=== PATIENT | male | born 1940 | race Caucasian/White ===

== ENCOUNTER 2019-03-08 10:30 | Inpatient (IN) | payer MEDICARE ==
[~2019-03-08 10:30] MED LIST: Iopamidol 370 76% 100 ML VIAL ONE
[2019-03-08 11:06] LABS: #Basophils 0.1 thou/uL (0.0-0.2); #Eosinphils 0.1 thou/uL (0.0-0.7); #Lymphocytes 3.7 thou/uL (1.20-3.40); #Neutrophils 8.4 thou/uL (1.40-6.50); %Basophils 0.6 % (0.0-1.0); %Eosinophils 0.8 % (0.0-10.0); %Lymphocytes 27.8 % (21.0-51.0); %Monocytes 7.5 % (0.0-10.0); %Neutrophils 63.4 % (42.0-75.0); Mean Corpuscular HGB CONC 32.9 g/dL (32.0-36.0); Mean Corpuscular Hemoglobin 29.4 pg (27.0-31.0); Mean Corpuscular Volume 89.4 fL (78.0-98.0); Mean Platelet Volume 8.6 fL (7.4-10.4); Platelet Count 186 thou/uL (130-400); RBC Distribution Width 12.4 % (11.5-14.5); White Blood Cell (WBC) Count 13.2 thou/uL (4.8-10.8)
[2019-03-08] MEDS ORDERED: Nitroglycerin 0.4 MG TAB 1 EACH ONE (11:14)
[2019-03-08] MEDS ORDERED: Aspirin 325 MG TAB ONE (11:14)
--- NOTE | 2019-03-08 11:18 | RAD ---
EXAM: Chest one view: HISTORY: Chest pain COMPARISON: 07/08/2016 FINDINGS: Heart size: Within normal limits. Lungs: Clear of acute process. No evidence for confluent pneumonia, pleural effusion, acute edema, or pneumothorax, or other signifi cant acute process. IMPRESSION: No significant acute intrathoracic disease. Atherosclerosis of the aorta. Stable exam.
[2019-03-08 11:27] LABS: ALT (SGPT) 36 U/L (8-55); AST (SGOT) 54 U/L (5-34); Albumin 4.4 g/dL (3.4-4.8); Alkaline Phosphatase 95 U/L (40-110); Anion Gap 11 mmol/L (10-20); BUN (Urea Nitrogen) 12 mg/dL (8.4-25.7); Bilirubin, Total 1.3 mg/dL (0.2-1.2); Calc. Creatinine Clearance 0 mL/min (70-130); Calcium 9.7 mg/dL (7.8-10.44); Carbon Dioxide 27 mmol/L (23-31); Chloride 105 mmol/L (98-107); Estimated GFR-MDRD 66; Globulin 2.5 g/dL (2.4-3.5); Glucose 117 mg/dL (83-110); Protein, Total 6.9 g/dL (5.8-8.1); Sodium 139 mmol/L (136-145)
[2019-03-08 12:00] LABS: CKMB 63.3 ng/mL (0-6.6)
[2019-03-08] MEDS ORDERED: Nitroglycerin 50 MG/250 ML BOT 250 ML ONE (12:14)
[2019-03-08] MEDS ORDERED: Enoxaparin Sodium 80 MG/0.8 ML SYRINGE ONE (12:28)
[2019-03-08] MEDS ORDERED: Morphine 2 MG/ML SYRINGE ONE (13:01)
[2019-03-08] MEDS ORDERED: Pantoprazole 40 MG VIAL ONE (13:05)
[2019-03-08 14:01] LABS: Troponin I 2.518 ng/mL (< 0.028)
[2019-03-08] MEDS ORDERED: Acetaminophen/Codeine 30-300mg Tablet PO PRN (14:43)
[2019-03-08] MEDS ORDERED: Nitroglycerin 0.4 MG TAB (25 Tab Bottle) SL PRN (14:43)
[2019-03-08] MEDS ORDERED: Sodium Chloride 0.9% 200 ML IV PRN (14:43)
[2019-03-08] MEDS ORDERED: Sodium Chloride 0.9% 500 ML IV SCH (14:45)
[2019-03-08] MEDS ORDERED: Heparin 10,000 UNITS/ 10 ML VIAL SLOW IVP SCH (15:00)
[2019-03-08 15:23] LABS: Hemoglobin 14.8 g/dL (14.0-18.0); Platelet Count 166 thou/uL (130-400)
[2019-03-08 16:12] VITALS: BMI 27.3
--- NOTE | 2019-03-08 16:45 | CT ---
EXAM: Brain CT scan Without contrast: HISTORY: Blindness left eye peripheral vision loss COMPARISON: None FINDINGS: Atrophy and chronic white matter ischemic change. No focal mass or midline shift. No intra or extra-axial hemorrhage. The visualized sinuses and mastoids are clear of acute process. IMPRESSION: No mass or bleed or other significant acute intracranial process.
--- NOTE | 2019-03-08 16:56 | CON ---
DATE OF CONSULTATION: HISTORY OF PRESENT ILLNESS: The patient is a 78-year-old gentleman with no known previous cardiac history, who presents with substernal chest discomfort. He was in his usual state of health when a few days ago, he started developing midsternal chest discomfort. This has been intermittent for the past few days. He states the chest discomfort has now become more persistent. PAST MEDICAL HISTORY: 1. BPH. 2. Osteoarthritis. PAST SURGICAL HISTORY: Appendectomy, cholecystectomy, and shoulder surgery. SOCIAL HISTORY: Nonsmoker. FAMILY HISTORY: Strong family history of heart disease. PHYSICAL EXAMINATION: GENERAL: This is a well-developed gentleman, in mild distress. VITAL SIGNS: Blood pressure was 120/70. NECK: Showed no jugular venous distention. LUNGS: Clear to auscultation. HEART: Regular rate and rhythm. Normal S1 and S2. ABDOMEN: Nondistended. EXTREMITIES: Showed no edema. LABORATORY DATA: Sodium 139, potassium 4.0, chloride 105, bicarbonate 27, BUN 12, and creatinine 1.03. CPK-MB was 63 and troponin was 2.1. White blood count 13.2, hemoglobin was 17.0, hematocrit 51.8, and platelets 186. EKG revealed normal sinus rhythm with ST depression suggestive of ischemia. IMPRESSION: Non-Q-wave myocardial infarction. This gentleman presents with a non-Q-wave myocardial infarction. He was placed on IV nitroglycerin and Lovenox. He continues to have chest discomfort. I recommended proceeding to cardiac catheterization. The risks involved procedure including NC, bleeding, stroke, cardiac arrhythmia, and cardiac have been explained to the patient. The risks involving in stent placement have also been explained. The patient understands these risks and wished to proceed. PLAN: Proceed with cardiac catheterization. Critical care note, time 40 minutes. Job ID: [id number] MTDD
--- NOTE | 2019-03-08 17:00 | CON ---
DATE OF CONSULTATION: 03/08/2019 REASON FOR CONSULTATION: Evaluate patient for coronary artery bypass grafting. HISTORY OF PRESENT ILLNESS: Mr. Carrillo is a 78-year-old gentleman, who presented to the emergency department with chest pain. He was given Lovenox, taken to the laborer [facility] and found to have severe three-vessel disease. His culprit is his right coronary artery, which has tandem right main lesions with bypassable PDA and PL branches. On the left side, he has diffusely diseased very small vessels throughout. He may have a bypassable LAD. The OM and diagonal systems are non-bypassable. He has had a balloon pump placed. His peak troponin is 2.5 with CK-MB of 63. I have been asked to see him to discuss coronary artery bypass grafting. PAST MEDICAL HISTORY: 1. Urinary stones. 2. Coronary artery disease. 3. BPH. ALLERGIES: NONE. PAST SURGICAL HISTORY: Renal stone extraction. HOME MEDICATIONS: 1. Flomax 0.4 mg b.i.d. 2. Aspirin 81 mg daily. PHYSICAL EXAMINATION: GENERAL: This is a well-developed, well-nourished man, resting comfortably in bed with a balloon pump placed through his groin sheaths. HEENT: Sclerae are nonicteric. Pupils are equal and round bilaterally. NECK: Supple without bruit. CHEST: Clear bilaterally. CARDIAC: Heart rhythm is regular without murmur. ABDOMEN: Soft and nontender. EXTREMITIES: No edema. LABORATORY DATA: Of note, his potassium is 4.0, creatinine is 1.08. Hemoglobin is 17, platelet count 186,000. IMAGING DATA: Chest x-ray shows no dominant lung mass. ASSESSMENT AND PLAN: ST-elevation myocardial infarction inferiorly. We will need revascularization after he cools off. Job ID: [id number]
--- NOTE | 2019-03-08 18:15 | HP ---
CHIEF COMPLAINT: Chest pain. HISTORY OF PRESENT ILLNESS: The patient is a 78-year-old male with no significant past medical history, who presents to the hospital with complaints of chest pain that has been going on since . The patient stated that he is normally very active. However, since , he has been having some chest tightness. He initially attributed that to reflux, took Tums, Protonix, and also some Pepto-Bismol without any relief. The patient stated that towards the end of the day, his pain improved and Sunday morning, his pain was okay. However, when he walked to the post office, he was very very short of breath. The patient stated that his chest pain intensified towards the end of Sunday. He denies any fevers or chills, any nausea, vomiting, or diarrhea. He stated that his pain was a pressure-like sensation, substernal, did not have any radiation. The patient appeared to be in discomfort on the nitroglycerin drip in the ER. PAST MEDICAL HISTORY: He has a history of GERD and he has a history of BPH. PAST SURGICAL HISTORY: He has had a cholecystectomy, hernia repair, colonoscopy, and right shoulder surgery. His last stress test was in 2017. MEDICATIONS: Currently, he is only on pantoprazole 20 mg daily. ALLERGIES: NO KNOWN DRUG ALLERGIES. REVIEW OF SYSTEMS: All negative except for the ones mentioned above in the HPI. FAMILY HISTORY: Father of an MO at age of 78, and he also had a brother who had a heart attack at the age of 40 and several other heart attacks. SOCIAL HISTORY: He denies any tobacco use or alcohol use or drug use. He is retired and lives with his . PHYSICAL EXAMINATION: VITAL SIGNS: Temperature of 98.8, heart rate of 80, blood pressure of 140/60, he is 98% on room air. GENERAL: He is awake, alert, and oriented x3, does not appear in distress, appears very uncomfortable. CV: S1 and S2 present. No murmurs, rubs, or gallops. LUNGS: Clear to auscultation. No rhonchi or wheezes noted. ABDOMEN: Soft, nontender. Bowel sounds present x2. EXTREMITIES: No edema. Pedal pulses are present x2. NEUROVASCULAR: No focal deficits noted. SKIN: No cuts, lesions, or bruises noted. LABORATORY RESULTS: WBCs of 13.2, hemoglobin 17.0, hematocrit of 51.8, platelets of 186. His chemistry; sodium 139, potassium 4.0, BUN of 62, creatinine 1.17. Troponin is 2.1 went up to 2.5 with a CK of 63. His bilirubin is 1.3. He did have a chest x-ray, which did not show any acute abnormalities and just atherosclerosis of the aorta. ASSESSMENT AND PLAN: The patient is a very pleasant 78-year-old male, who presents to the hospital with complaints of chest pain. 1. Unstable angina. The patient has had significant pain at rest. We will start to trend troponins. The patient is currently on nitroglycerin drip, still having chest pain. I will call Cardiology. The patient will most likely require cardiac cath today. He does have ST depression in his lateral leads and we have his nitroglycerin drip for about 40 minutes without any relief. His blood pressure is currently stable. 2. Gastroesophageal reflux disease. We will continue his home medication. 3. Mildly elevated LFT. Again, we will check a lipid panel in the morning and continue to monitor. 4. Mild leukocytosis is possible reactive. He does not have any fever and I will hold off on any antibiotics for now. The patient is going to be admitted to the ICU. We will start Lovenox and the patient has been received aspirin. We will also put this patient on a statin. Job ID: [id number]
[2019-03-08] MEDS: Sodium Chloride 0.9% 1,000 ML IV SCH (19:10)
[2019-03-08] MEDS: Tamsulosin HCl 0.4 MG CAP PO SCH (20:02)
[2019-03-08] MEDS: Atorvastatin Calcium 40 MG TAB PO SCH (20:02)
[2019-03-08 21:38] LABS: Troponin I 8.025 ng/mL (< 0.028)
[2019-03-08] MEDS: Heparin 10,000 UNITS/ 10 ML VIAL SLOW IVP SCH (23:54)
[2019-03-08] MEDS: Heparin 25,000 units/D5W 500 ML IVPB SCH (23:55)
[2019-03-09] MEDS: Nitroglycerin 50 MG/250 ML BOT 250 ML IVPB SCH ×2 (00:51→18:59)
[2019-03-09] MEDS: Morphine 2 MG/ML SYRINGE SLOW IVP PRN ×3 (03:55→22:52)
[2019-03-09] MEDS: Ondansetron PF 4 MG/2 ML Vial SLOW IVP PRN ×2 (03:55→12:54)
[2019-03-09] MEDS: Sodium Chloride 0.9% 1,000 ML IV SCH ×2 (04:07→19:00)
[2019-03-09 06:41] LABS: #Lymphocytes 3.6 thou/uL (1.20-3.40); #Monocytes 1.9 thou/uL (0.11-0.59); #Neutrophils 10.4 thou/uL (1.40-6.50); %Basophils 0.3 % (0.0-1.0); %Eosinophils 0.1 % (0.0-10.0); %Lymphocytes 22.7 % (21.0-51.0); %Monocytes 11.6 % (0.0-10.0); %Neutrophils 65.3 % (42.0-75.0); Hemoglobin 13.9 g/dL (14.0-18.0); Mean Corpuscular Hemoglobin 30.3 pg (27.0-31.0); Mean Corpuscular Volume 89.2 fL (78.0-98.0); Mean Platelet Volume 8.7 fL (7.4-10.4); Platelet Count 148 thou/uL (130-400); RBC Distribution Width 12.4 % (11.5-14.5); Red Blood Cell (RBC) Count 4.57 mill/uL (4.70-6.10)
[2019-03-09 07:02] LABS: ALT (SGPT) 29 U/L (8-55); AST (SGOT) 64 U/L (5-34); Albumin 3.5 g/dL (3.4-4.8); Alkaline Phosphatase 72 U/L (40-110); Anion Gap 9 mmol/L (10-20); BUN (Urea Nitrogen) 14 mg/dL (8.4-25.7); Calc. Creatinine Clearance 73 mL/min (70-130); Calcium 8.6 mg/dL (7.8-10.44); Carbon Dioxide 23 mmol/L (23-31); Cardiac Risk 3.1 (Less than 4.5); Chloride 109 mmol/L (98-107); Cholesterol 122 mg/dl (< 200 Desired); Estimated GFR-MDRD 73; Glucose 125 mg/dL (83-110); HDL Cholesterol 39 mg/dL (>60 Neg Risk); LDL Cholesterol, Calculated 73 mg/dL; Potassium 3.9 mmol/L (3.5-5.1); Protein, Total 5.5 g/dL (5.8-8.1); Sodium 137 mmol/L (136-145); Triglycerides 49 mg/dL (Less than 150)
[2019-03-09] MEDS ORDERED: CEFAZOLIN 2 GM in Premix Bag 1 BAG IVPB SCH (08:15)
[2019-03-09] MEDS: Tamsulosin HCl 0.4 MG CAP PO SCH (09:26)
[2019-03-09] MEDS: Aspirin 81 mg Enteric Coated Tablet PO SCH (09:26)
--- NOTE | 2019-03-09 09:40 | PDOC.HOSPP ---
- Subjective Encounter Date: 03/09/19 Encounter Time: 09:38 Subjective: Mr. Carrillo was seen today in follow-up of STEMI. He denies chest pain or trouble breathing, dizziness lightheaded ect. - Objective Vital Signs & Weight: Vital Signs (12 hours) Temp Pulse Resp BP BP Pulse Ox 03/09/19 08:00 99.6 F 03/09/19 06:46 96 03/09/19 04:00 98.9 F 03/09/19 00:00 99.5 F 78 14 112/62 112/62 96 Weight Admit Weight 180 lb 1.883 oz Weight 178 lb 2.136 oz Most Recent Monitor Data Heart Rate from ECG 82 NIBP 123/68 NIBP BP-Mean 86 Respiration from ECG 17 SpO2 95 I&O: 03/08/19 03/09/19 03/10/19 06:59 06:59 06:59 Intake Total 2114.9 Output Total 800 150 Balance 1314.9 -150 Result Diagrams: 03/09/19 06:32 03/09/19 06:32 Hospitalist ROS - Medication Medications: Active Medications Generic Name Dose Route Start Last Admin Trade Name Freq PRN Reason Stop Dose Admin Acetaminophen/Codeine Phosphate 1 tab 03/08/19 14:43 03/08/19 17:58 Tylenol #3 PO 1 tab Q4H PRN Administration Mild Pain (1-3) Aspirin 81 mg 03/09/19 09:00 03/09/19 09:26 Ecotrin PO 81 mg DAILY ROSIO Administration Atorvastatin Calcium 80 mg 03/08/19 21:00 03/08/19 20:02 Lipitor PO 80 mg HS ROSIO Administration Heparin Sodium (Porcine) 0 units 03/08/19 23:50 03/08/19 23:54 Heparin 1,000 Units/Ml (10 Ml) SLOW IVP 4,000 unit ASDIR ROSIO Administration Protocol Heparin Sodium/Dextrose 500 mls @ 0 mls/hr 03/08/19 23:50 03/08/19 23:55 Heparin 25,000 Units/D5w 500 Ml IVPB 500 mls INF ROSIO Administration Protocol Per Protocol Sodium Chloride 1,000 mls @ 75 mls/hr 03/08/19 18:45 03/09/19 04:07 Normal Saline 0.9% IV 1,000 mls .[id number] ROSIO Administration Nitroglycerin/Dextrose 250 mls @ 0 mls/hr 03/08/19 18:45 03/09/19 00:51 Nitroglycerin 50 Mg/250 Ml Bot IVPB 250 mls INF ROSIO Administration Protocol As Directed Morphine Sulfate 2 mg 03/08/19 18:33 03/09/19 03:55 Morphine SLOW IVP 2 mg Q2H PRN Administration Moderate to Severe Pain (6-10) Ondansetron HCl 4 mg 03/09/19 01:22 03/09/19 03:55 Zofran SLOW IVP 4 mg Q6H PRN Administration Nausea/Vomiting Pantoprazole Sodium 40 mg 03/08/19 21:00 03/09/19 09:26 Protonix PO 40 mg BID ROSIO Administration Sodium Chloride 10 ml 03/08/19 21:00 03/09/19 09:27 Flush - Normal Saline IVF Not Given Q12HR ROSIO Tamsulosin HCl 0.4 mg 03/08/19 21:00 03/09/19 09:26 Flomax PO 0.4 mg BID ROSIO Administration - Exam Eye: PERRL Heart: RRR, no rubs, normal peripheral pulses (+ S3) Respiratory: CTAB, no wheezes, no rales, no ronchi, normal chest expansion, no tachypnea Gastrointestinal: soft, non-tender, non-distended, normal bowel sounds, no palpable masses, no hepatomegaly Extremities: no cyanosis, no clubbing, no edema Hosp A/P (1) STEMI (ST elevation myocardial infarction) Status: Acute (2) Chronic diastolic heart failure Code(s): I50.32 - CHRONIC DIASTOLIC (CONGESTIVE) HEART FAILURE Status: Chronic (3) GERD (gastroesophageal reflux disease) Code(s): K21.9 - GASTRO-ESOPHAGEAL REFLUX DISEASE WITHOUT ESOPHAGITIS Status: Chronic - Plan * STEMI- patient was found to have 3 vessel CAD * Continue aspirin, Nitrodrip, and lipitor. He also is on balloon pump * Chronic diastolic heart failure- compensated * Plan is for CABG tomorrow
[2019-03-09] MEDS: Heparin 10,000 UNITS/ 10 ML VIAL SLOW IVP SCH (18:49)
[2019-03-09] MEDS: Atorvastatin Calcium 40 MG TAB PO SCH (21:39)
[2019-03-10] MEDS: Heparin 25,000 units/D5W 500 ML IVPB SCH (00:37)
[2019-03-10] MEDS: Morphine 2 MG/ML SYRINGE SLOW IVP PRN (02:21)
[2019-03-10 03:46] LABS: Anion Gap 12 mmol/L (10-20); BUN (Urea Nitrogen) 13 mg/dL (8.4-25.7); Calc. Creatinine Clearance 88 mL/min (70-130); Calcium 8.1 mg/dL (7.8-10.44); Carbon Dioxide 20 mmol/L (23-31); Chloride 107 mmol/L (98-107); Estimated GFR-MDRD Greater than 90; Glucose 113 mg/dL (83-110); Potassium 3.6 mmol/L (3.5-5.1); Sodium 135 mmol/L (136-145)
[2019-03-10 04:11] LABS: #Basophils 0.1 thou/uL (0.0-0.2); #Eosinphils 0.1 thou/uL (0.0-0.7); #Lymphocytes 4.3 thou/uL (1.20-3.40); #Neutrophils 8.8 thou/uL (1.40-6.50); %Basophils 0.5 % (0.0-1.0); %Eosinophils 0.5 % (0.0-10.0); %Lymphocytes 28.2 % (21.0-51.0); %Monocytes 12.9 % (0.0-10.0); %Neutrophils 57.9 % (42.0-75.0); Hemoglobin 12.4 g/dL (14.0-18.0); Mean Corpuscular HGB CONC 34.3 g/dL (32.0-36.0); Mean Corpuscular Hemoglobin 30.7 pg (27.0-31.0); Mean Corpuscular Volume 89.6 fL (78.0-98.0); Mean Platelet Volume 8.7 fL (7.4-10.4); Platelet Count 111 thou/uL (130-400); Platelet Morphology Comment Appears Decreased; RBC Distribution Width 12.3 % (11.5-14.5); Red Blood Cell (RBC) Count 4.04 mill/uL (4.70-6.10); White Blood Cell (WBC) Count 15.1 thou/uL (4.8-10.8)
--- NOTE | 2019-03-10 08:06 | CON ---
DATE OF CONSULTATION: HISTORY OF PRESENT ILLNESS: Reggie Carrillo is a 78-year-old gentleman, who came into the ER yesterday with chest pain. He thought it was reflux. Unfortunately, the pain persisted. His EKG was abnormal. He was taken to the cardiac cath, found to have significant coronary artery disease. He is scheduled for bypass surgery tomorrow. He is a nonsmoker. He drinks minimally. PAST MEDICAL HISTORY: Pertinent for hypertension, arthritis, and BPH. PREVIOUS SURGERIES: Appendix, gallbladder, shoulder. HOME MEDICATIONS: Include 1. Flomax 0.4. 2. Ibuprofen. 3. Protonix. ALLERGIES: NONE. 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 FAMILY HISTORY: Unremarkable. REVIEW OF SYSTEMS: Otherwise 10-point negative. PHYSICAL EXAMINATION: GENERAL: He is in no distress. VITAL SIGNS: Blood pressure 123/68, pulse , respiratory rate 18, and afebrile. CHEST: No wheezing or crackles. CARDIAC: Normal S1 and S2. No gallops. ABDOMEN: Soft. NEUROLOGIC: Awake, alert, and responsive. LABORATORY DATA: X-ray is clear. Troponin is elevated, 8.02. Lytes are normal. White count is slightly elevated at 16,000. IMPRESSION: 1. Coronary artery disease. 2. Chest pain. 3. Status post cardiac cath. PLAN: Pulmonary/Critical Care will follow while in the ICU. He appears to be stable. Consultation note, 70 minutes, 50% direct patient care. Job ID: [id number]
--- NOTE | 2019-03-10 08:18 | PRG ---
DATE OF SERVICE: 03/10/2019 SUBJECTIVE: Reggie Carrillo remains in the ICU. He is scheduled for bypass surgery later on in the day. OBJECTIVE: VITAL SIGNS: Pulse 67, blood pressure 110/70, saturations on 2 L, respirations 18, and afebrile. GENERAL: He denies pain or discomfort. CHEST: No wheezing or crackles. CARDIAC: Normal S1, S2. No gallops. ABDOMEN: No mass. LABORATORY DATA: White count 15,000. Lytes are normal. PTT 76. ASSESSMENT: Coronary artery disease, status post emergency cardiac cath. PLAN: He is scheduled for bypass surgery later on today. Pulmonary will follow while in the ICU. Wean per protocol. Job ID: [id number]
[2019-03-10] MEDS ORDERED: Glycopyrrolate 0.2 MG/ML 5 ML SYRINGE ONE (09:28)
[2019-03-10] MEDS ORDERED: ePHEDrine/0.9% NaCl/PF SYRINGE 50 mg/10 ml ONE (09:28)
[2019-03-10] MEDS ORDERED: Ketorolac Tromethamine 30 MG/ML VIAL ONE (09:28)
[2019-03-10] MEDS ORDERED: Aminocaproic Acid 5 GM/20 ML VIAL ONE (09:28)
[2019-03-10] MEDS ORDERED: Potassium Chloride 60 MEQ/30 ML VIAL ONE (09:28)
[2019-03-10] MEDS ORDERED: Heparin 5,000 UNITS/ML VIAL ONE (09:28)
[2019-03-10] MEDS ORDERED: Heparin 30,000 units/30 ml VIAL ONE (09:28)
[2019-03-10] MEDS ORDERED: Calcium Chloride 1 GM/10 ML Abboject SYRINGE ONE (09:28)
[2019-03-10] MEDS ORDERED: Sodium Bicarb 50 MEQ/50 ML Abboject 8.4% SYRINGE ONE (09:28)
[2019-03-10] MEDS ORDERED: Ondansetron PF 4 MG/2 ML Vial ONE (09:28)
[2019-03-10] MEDS ORDERED: Nitroglycerin 50 MG/250 ML BOT ONE (09:28)
[2019-03-10] MEDS ORDERED: Dexamethasone 20 MG/5 ML VIAL ONE (09:28)
[2019-03-10] MEDS ORDERED: Cardioplegic Soln 1,000 ML BAG ONE (09:28)
[2019-03-10] MEDS ORDERED: Lidocaine 2% PF 5 ML VIAL ONE (09:28)
[2019-03-10] MEDS ORDERED: Vecuronium 10 MG VIAL ONE ×2 (09:28→12:36)
[2019-03-10] MEDS ORDERED: Papaverine 60 MG/2 ML VIAL ONE (09:28)
[2019-03-10] MEDS ORDERED: Magnesium Sulfate 1 GM/2 ML VIAL ONE (09:28)
[2019-03-10] MEDS ORDERED: Lidocaine 1% PF 5 ML VIAL ONE ×2 (09:28)
[2019-03-10] MEDS ORDERED: Thrombin 5000 UNITS/5 ML VIAL ONE (09:28)
[2019-03-10] MEDS: Aspirin 81 mg Enteric Coated Tablet PO SCH (09:38)
--- NOTE | 2019-03-10 09:57 | PDOC.HOSPP ---
- Subjective Encounter Date: 03/10/19 Encounter Time: 09:55 Subjective: Mr. Carrillo was seen today in follow-up of NSTEMI. He does not have any complaints today. He denies chest pain or shortness of breath. - Objective Vital Signs & Weight: Vital Signs (12 hours) Temp Pulse Ox 03/10/19 08:00 99.8 F H 100 03/09/19 23:00 98.6 F Weight Admit Weight 180 lb 1.883 oz Weight 178 lb 12.718 oz Most Recent Monitor Data Heart Rate from ECG 74 NIBP 127/51 NIBP BP-Mean 76 Respiration from ECG 20 SpO2 95 I&O: 03/09/19 03/10/19 03/11/19 06:59 06:59 06:59 Intake Total 2114.9 3511 24 Output Total 800 925 100 Balance 1314.9 2586 -76 Result Diagrams: 03/10/19 03:09 03/10/19 03:09 Hospitalist ROS - Medication Medications: Active Medications Generic Name Dose Route Start Last Admin Trade Name Freq PRN Reason Stop Dose Admin Acetaminophen/Codeine Phosphate 1 tab 03/08/19 14:43 03/08/19 17:58 Tylenol #3 PO 1 tab Q4H PRN Administration Mild Pain (1-3) Aspirin 81 mg 03/09/19 09:00 03/10/19 09:38 Ecotrin PO Not Given DAILY ROSIO Atorvastatin Calcium 80 mg 03/08/19 21:00 03/09/19 21:39 Lipitor PO 80 mg HS ROSIO Administration Sodium Chloride 1,000 mls @ 75 mls/hr 03/08/19 18:45 03/09/19 19:00 Normal Saline 0.9% IV 1,000 mls .[id number] ROSIO Administration Nitroglycerin/Dextrose 250 mls @ 0 mls/hr 03/08/19 18:45 03/09/19 18:59 Nitroglycerin 50 Mg/250 Ml Bot IVPB 250 mls INF ROSIO Administration Protocol As Directed Morphine Sulfate 2 mg 03/08/19 18:33 03/10/19 02:21 Morphine SLOW IVP 2 mg Q2H PRN Administration Moderate to Severe Pain (6-10) Ondansetron HCl 4 mg 03/09/19 01:22 03/09/19 12:54 Zofran SLOW IVP 4 mg Q6H PRN Administration Nausea/Vomiting Pantoprazole Sodium 40 mg 03/08/19 21:00 03/10/19 09:38 Protonix PO Not Given BID ROSIO Sodium Chloride 10 ml 03/08/19 21:00 03/10/19 09:38 Flush - Normal Saline IVF Not Given Q12HR ROSIO - Exam Eye: PERRL, anicteric sclera Heart: RRR, murmur present, II/IV Respiratory: CTAB, no wheezes, no rales, no ronchi, normal chest expansion, no tachypnea, normal percussion Gastrointestinal: soft, non-tender, non-distended, normal bowel sounds, no palpable masses, no hepatomegaly Extremities: 1+ LE edema Hosp A/P (1) NSTEMI (non-ST elevated myocardial infarction) Code(s): I21.4 - NON-ST ELEVATION (NSTEMI) MYOCARDIAL INFARCTION Status: Acute (2) Chronic diastolic heart failure Code(s): I50.32 - CHRONIC DIASTOLIC (CONGESTIVE) HEART FAILURE Status: Chronic (3) GERD (gastroesophageal reflux disease) Code(s): K21.9 - GASTRO-ESOPHAGEAL REFLUX DISEASE WITHOUT ESOPHAGITIS Status: Chronic - Plan * NSTEMI - patient was found to have 3 vessel CAD * Continue aspirin, Nitrodrip, and lipitor. He also is on balloon pump * Patient is clinically stable * Chronic diastolic heart failure- compensated * For CABG today
[2019-03-10] MEDS: Sodium Chloride 0.9% 1,000 ML IV SCH (10:00)
[2019-03-10] MEDS ORDERED: Bupivacaine PF 0.5% 30 ML VIAL ONE (11:47)
[2019-03-10] MEDS ORDERED: Albumin 5% 500 ML ONE (11:47)
[2019-03-10] MEDS ORDERED: Dexamethasone 4 mg/ml Vial ONE (11:47)
[2019-03-10] MEDS ORDERED: Lidocaine 1% w/Epinephrine 1:100K 20 ML VIAL ONE (11:47)
[2019-03-10] MEDS: Nitroglycerin 50 MG/250 ML BOT 250 ML IVPB SCH (12:21)
[2019-03-10] MEDS ORDERED: Midazolam HCl 2 mg/2 ml Vial ONE (12:35)
[2019-03-10] MEDS ORDERED: Fentanyl 100 MCG/2 ML VIAL ONE (12:35)
[2019-03-10] MEDS ORDERED: Midazolam HCl 5 mg/5 ml Vial ONE (12:35)
[2019-03-10] MEDS ORDERED: Dexmedetomidine 200 MCG/2 ML VIAL ONE (12:36)
[2019-03-10] MEDS ORDERED: Heparin 10,000 UNITS/1 ML VIAL 30,000 UNITS in Sodium Chloride 0.9% 1,000 ML FS SCH (13:00)
[2019-03-10] MEDS ORDERED: EPINEPHrine 1 MG/ML AMP ONE (15:24)
[2019-03-10] MEDS ORDERED: Nitroglycerin 50 MG/250 ML BOT 250 ML IVPB PRN (16:15)
[2019-03-10] MEDS ORDERED: Mag-Al 1200 mg/1200 mg/30 ML UDCUP PO PRN (16:15)
[2019-03-10] MEDS ORDERED: Promethazine HCl 25 MG/ML VIAL IM PRN (16:15)
[2019-03-10] MEDS ORDERED: Morphine 2 MG/ML SYRINGE SLOW IVP PRN (16:15)
[2019-03-10] MEDS ORDERED: hydrALAZINE 20 MG/ML VIAL SLOW IVP PRN (16:15)
[2019-03-10] MEDS ORDERED: Potassium Chloride 20 MEQ/100 ML PREMIX BAG IVPB PRN (16:15)
[2019-03-10] MEDS ORDERED: Guaifenesin DM 100-10/5 ML UDCUP PO PRN (16:15)
[2019-03-10] MEDS ORDERED: Phenylephrine 10 MG/NS 250 ML 250 ML IVPB PRN (16:15)
[2019-03-10] MEDS ORDERED: Bisacodyl 10 MG SUPP PR PRN (16:15)
[2019-03-10] MEDS ORDERED: Bisacodyl 5 MG TAB PO PRN (16:15)
[2019-03-10] MEDS ORDERED: Ondansetron PF 4 MG/2 ML Vial IVP PRN (16:15)
[2019-03-10] MEDS ORDERED: Fentanyl 100 MCG/2 ML VIAL SLOW IVP PRN ×2 (16:15)
[2019-03-10] MEDS ORDERED: Hetastarch 6% 500 ML 500 ML IVPB PRN (16:15)
[2019-03-10] MEDS ORDERED: Norepinephrine 8 MG/0.9% NS 250 ML IVPB PRN (16:15)
[2019-03-10] MEDS ORDERED: D5 1/2 NS w/20 mEq KCL 1,000 ML IV SCH (16:15)
[2019-03-10] MEDS ORDERED: Acetaminophen 325 MG TAB PO PRN (16:15)
[2019-03-10] MEDS ORDERED: Magnesium 2 GM/50 ML 2 GM in Premix Bag 1 BAG IVPB SCH (16:30)
[2019-03-10] MEDS ORDERED: Dextrose 5% in Water 1,000 ML IV PRN (16:32)
[2019-03-10] MEDS ORDERED: Dextrose 50% Abboject 50 ML SYRINGE SLOW IVP PRN (16:32)
[2019-03-10] MEDS ORDERED: HUMULIN R 100 UNITS in Sodium Chloride 0.9% 100 ML IVPB SCH (16:43)
[2019-03-10 16:44] LABS: Actual Bicarbonate (HCO3a) 18.7 mEq/L (22-28); Base Excess (BEa) -6.1 mEq/L (-2.0 to +3.0); CO2 Tension 34.8 mmHg (35.0-45.0); Carboxyhemoglobin (COHb) 1.3 gm% (0.0-3.0); O2 Tension (PaO2) 60.2 mmHg (> 70.0); Potassium - ABG Lab 3.93 mmol/L (3.70-5.30); pH, Arterial 7.35 (7.35-7.45)
[2019-03-10 16:45] LABS: Puncture Site LR
--- NOTE | 2019-03-10 16:52 | RAD ---
Chest one view HISTORY: Heart surgery. COMPARISON: 03/08/2019. FINDINGS: Cardiac silhouette is magnified by projection. Shallow inspiration accentuates pulmonary ma rkings. Mediastinum is midline with postoperative changes and radiopaque drain. Left thoracostomy tube projec ts over the lateral aspect of the left hemithorax. Tip of a right subclavian central venous catheter projects over the right atrium. Atelectasis evident at the left posterior medial lung base. No evidence of pneumothorax. IMPRESSION: Expected postoperative changes of the chest as detailed above.
[2019-03-10 17:00] LABS: PTT 32.9 SEC (22.9-36.1)
[2019-03-10 17:05] LABS: Hemoglobin 12.4 g/dL (14.0-18.0); Mean Corpuscular HGB CONC 33.6 g/dL (32.0-36.0); Mean Corpuscular Hemoglobin 30.4 pg (27.0-31.0); Mean Corpuscular Volume 90.3 fL (78.0-98.0); Mean Platelet Volume 8.6 fL (7.4-10.4); Platelet Count 80 thou/uL (130-400); RBC Distribution Width 12.3 % (11.5-14.5); Red Blood Cell (RBC) Count 4.07 mill/uL (4.70-6.10); White Blood Cell (WBC) Count 18.1 thou/uL (4.8-10.8)
[2019-03-10 17:12] LABS: INR-International Normal Ratio 1.5; Prothrombin Time 17.7 SEC (12.0-14.7)
[2019-03-10] MEDS: Insulin Regular 300 UNITS/3 ML VIAL SC PRN ×2 (17:14→20:19)
[2019-03-10 17:16] LABS: Band 18 % (5-11); Lymphocytes 16 % (21-51); MDiff Complete? YES; Metamyelocyte 4 % (0-0); Monocytes 3 % (0-10); Neutrophil 58 % (42-75); Platelet Morphology Comment Appears Decreased; Polychromasia SLIGHT = 2-3 cells (100X) (0-2/hpf)
[2019-03-10 17:17] LABS: Anion Gap 11 mmol/L (10-20); BUN (Urea Nitrogen) 12 mg/dL (8.4-25.7); Calc. Creatinine Clearance 89 mL/min (70-130); Calcium 7.8 mg/dL (7.8-10.44); Carbon Dioxide 21 mmol/L (23-31); Chloride 107 mmol/L (98-107); Estimated GFR-MDRD Greater than 90; Glucose 147 mg/dL (83-110); Potassium 4.1 mmol/L (3.5-5.1); Sodium 135 mmol/L (136-145)
[2019-03-10] MEDS: Ketorolac Tromethamine 30 MG/ML VIAL IVP SCH (17:40)
--- NOTE | 2019-03-10 17:54 | PDOC.CPN ---
- Subjective Date: 03/10/19 Time: 11:45 Interval history: Doing well. Still has a spot on his eye which he cannot see but it is not progressing but also not improving. - Review of Systems General: denies: fever/chills, weight/appetite/sleep changes, night sweats, fatigue Respiratory: denies: cough, congestion, shortness of breath, exercise intolerance Cardiovascular: denies: chest pain, palpitation, edema, paroxysmal nocturnal dyspnea, orthopnea Gastrointestinal: denies: nausea, vomiting, diarrhea, constipation, abd pain, GI bleeding Musculoskeletal: denies: pain, tenderness, stiffness, swelling, arthritis/ arthralgias Neurological: denies: numbness, syncope, seizure, weakness - Objective Allergies/Adverse Reactions: Allergies Allergy/AdvReac Type Severity Reaction Status Date / Time No Known Allergies Allergy Verified 07/08/16 18:04 Visit Medications: Current Medications Acetaminophen (Tylenol) 650 mg PO Q6H PRN PRN Reason: Headache/Fever/Mild Pain (1-3) Al Hydroxide/Mg Hydroxide (Maalox) 30 ml PO Q4H PRN PRN Reason: Indigestion Albumin Human (Albumin 5%) 12.5 gm IVPB Q6H PRN PRN Reason: To Maintain SBP> 90 mmHG Stop: 03/11/19 16:16 Albumin Human (Albumin 5%) 25 gm IVPB Q6H PRN PRN Reason: To Maintain SBP > 90 mmHG Stop: 03/11/19 16:16 Albuterol/Ipratropium (Duoneb) 3 ml NEB Q6H PRN PRN Reason: SHORTNESS OF BREATH Aspirin (Aspirin) 325 mg PO DAILY ROSIO Atorvastatin Calcium (Lipitor) 20 mg PO HS ROSIO Bisacodyl (Dulcolax) 10 mg PO Q12H PRN PRN Reason: Constipation Bisacodyl (Dulcolax) 10 mg [place] Q12H PRN PRN Reason: Constipation Dextrose/Water (Dextrose 50%) 25 gm SLOW IVP PRN PRN PRN Reason: PER HYPOGLYCEMIC PROTOCOL Famotidine (Pepcid) 20 mg SLOW IVP Q12HR ROSIO Fentanyl (Sublimaze) 25 mcg SLOW IVP Q2H PRN PRN Reason: Moderate Pain (4-6) Stop: 03/12/19 16:10 Fentanyl (Sublimaze) 50 mcg SLOW IVP Q2H PRN PRN Reason: Severe Pain (7-10) Stop: 03/12/19 16:10 Last Admin: 03/10/19 17:45 Dose: 50 mcg Glucagon (Glucagon) 1 mg SC PRN PRN PRN Reason: PER HYPOGLYCEMIC PROTOCOL Guaifenesin/Dextromethorphan (Robitussin Dm) 15 ml PO Q4H PRN PRN Reason: Cough Hydralazine HCl (Apresoline) 10 mg SLOW IVP Q6H PRN PRN Reason: To Maintain SBP< 140mmHG Cefazolin Sodium/Dextrose 2 gm (/ Device) 50 mls @ 100 mls/hr IVPB Q8HR [facility] Stop: 03/11/19 14:29 Potassium Chloride/Dextrose/Sod Cl (D5 1/2 Ns W/20 Meq Kcl) 1,000 mls @ 40 mls/ hr IV .Q24H [facility] Last Admin: 03/10/19 17:08 Dose: 1,000 mls Hetastarch/Sodium Chloride (Hespan) 500 mls @ 0 mls/hr IVPB PRN PRN PRN Reason: To Maintain SBP > 90mmHg Stop: 03/11/19 16:10 Norepinephrine Bitartrate (Levophed) 250 mls @ 0 mls/hr IVPB PRN PRN; Protocol PRN Reason: To maintain SBP > 90 mmHG Magnesium Sulfate 2 gm/ Device 50 mls @ 50 mls/hr IVPB NOW [facility] Stop: 03/10/19 18:30 Last Admin: 03/10/19 17:20 Dose: 50 mls Magnesium Sulfate 2 gm/ Device 50 mls @ 50 mls/[facility] [place]: 03/12/19 09:59 Nitroglycerin/Dextrose (Nitroglycerin 50 Mg/250 Ml Bot) 250 mls @ 0 mls/hr IVPB PRN PRN; Protocol PRN Reason: To Maintain SBP< 140mmHG Phenylephrine HCl (Ancelmo-Synephrine) 250 mls @ 0 mls/hr IVPB PRN PRN; Protocol PRN Reason: To maintain SBP > 90 mmHG Dextrose/Water (D5w) 1,000 mls @ 0 mls/hr IV INF PRN PRN Reason: PRN HYPOGLYCEMIC PROTOCOL Insulin Human Regular 100 (units/ Sodium Chloride) 101 mls @ 0 mls/hr IVPB INF [facility]; Protocol Insulin Human Regular (Humulin R) 0 units SC Q4H PRN; Protocol PRN Reason: POST OP SLIDING SCALE Last Admin: 03/10/19 17:14 Dose: 3 unit Ketorolac Tromethamine (Toradol) 30 mg IVP Q6HR [facility] Stop: 03/13/19 18:01 Last Admin: 03/10/19 17:40 Dose: 30 mg Morphine Sulfate (Morphine) 2 mg SLOW IVP Q15MIN PRN PRN Reason: Severe Pain (7-10) Ondansetron HCl (Zofran) 4 mg IVP Q6H PRN PRN Reason: Nausea/Vomiting Potassium Chloride (Kcl) 20 meq IVPB PRN PRN PRN Reason: K level </= 4.0 Promethazine HCl (Phenergan) 6.25 mg IM Q4H PRN PRN Reason: Nausea/Vomiting Sodium Chloride (Flush - Normal Saline) 10 ml IVF Q12HR [facility] Vital Signs & Weight: Vital Signs Temp Pulse Ox 03/10/19 16:56 93 L 03/10/19 12:00 99.1 F 03/10/19 08:00 99.8 F H 100 Admit Weight 180 lb 1.883 oz Weight 178 lb 12.718 oz - Physical Exam General: alert & oriented x3 HEENT: mucus membranes moist Neck: supple neck Cardiac: regular rate and rhythm Lungs: clear to auscultation Neuro: grossly intact Abdomen: active bowel sounds Extremities: no edema Skin: clear Musculoskeletal: no pain - Labs Result Diagrams: 03/10/19 16:45 03/10/19 16:45 Troponin/CKMB CK-MB (CK-2) 63.3 ng/mL (0-6.6) H* 03/08/19 10:51 Troponin I 8.025 ng/mL (< 0.028) H* 03/08/19 20:58 - Telemetry Sinus rhythms and dysrhythmias: sinus rhythm - Assessment/Plan Assessment/Plan: 1. NSTEMI 2. Severe multivessel AD. PLAn: - Continue IABP until surgery. - CABG today.
[2019-03-10] MEDS: CEFAZOLIN 2 GM in Premix Bag 1 BAG IVPB SCH (20:20)
[2019-03-10] MEDS ORDERED: Famotidine/PF 20 mg/2ml Vial SLOW IVP SCH (21:00)
[2019-03-10] MEDS ORDERED: Atorvastatin Calcium 20 MG TAB PO SCH (21:00)
[2019-03-10 22:17] LABS: Hemoglobin 12.8 g/dL (14.0-18.0)
[2019-03-10 22:46] LABS: Potassium 4.2 mmol/L (3.5-5.1)
--- NOTE | 2019-03-10 23:22 | OP ---
DATE OF PROCEDURE: 03/10/2019 PREOPERATIVE DIAGNOSES: 1. Coronary artery disease/status post acute myocardial infarction with depressed left ventricular ejection fraction and intra-aortic balloon support. 2. Hypertension. 3. Dyslipidemia. POSTOPERATIVE DIAGNOSES: 1. Coronary artery disease/status post acute myocardial infarction with depressed left ventricular ejection fraction and intra-aortic balloon support. 2. Hypertension. 3. Dyslipidemia. PROCEDURES PERFORMED: 1. Coronary artery bypass grafting x3. 2. Left internal mammary artery 1.25 mm mid LAD, good conduit and diffusely diseased target. 3. Reverse saphenous vein to 2.0 mm PDA in a [id number] fashion and 2.[address] branch in an end-to-side fashion with a sequential vein graft. There was good conduit and targets. CARPET LAYER HELPER: Devyn Carpenter MD ANESTHESIA: General endotracheal, Zoey Ramos MD. PUMP TIME: 43 minutes. CROSS-CLAMP TIME: 32 minutes. LOW CORE TEMPERATURE: 34 degrees Celsius. PROFESSIONAL NURSE: Yanna Snyder. DRAINS: 24-[place] chest tubes x2. DRIPS: Nitroglycerin. TRANSFUSIONS: None. DESCRIPTION OF PROCEDURE: After consent was obtained, the patient was brought to the operating room, placed in supine position on operating table. Appropriate central line and monitors were placed and general endotracheal anesthesia was induced. Chest and legs were prepped and draped in usual sterile fashion. Greater saphenous vein was harvested from the left lower extremity utilizing an endoscopic technique. Wound was irrigated and closed in layers. Median sternotomy was performed. Left internal mammary artery was harvested as a pedicle graft. The patient was systemically heparinized. Distal pedicle was divided and infused with papaverine. Thymic fat and pericardium were divided with electrocautery. Pericardial stay sutures were placed. Aortic and atrial cannulation was performed. After adequate heparinization, retrograde prime was performed. The patient was placed on cardiopulmonary bypass. Distal targets were marked. Aortic cross-clamp was applied and antegrade sanguineous cardioplegic arrest was obtained. 1 L of antegrade cold [place] cardioplegia was given. Topical cold solution was used. Reverse saphenous vein was anastomosed in a [id number]-[id number] fashion with PDA in end-to-side fashion with PL branch. Anastomoses were tested and were hemostatic. The mammary artery was brought through a window in the pericardium and anastomosed to LAD in an end-to-side fashion with running 7-0 Prolene suture. Anastomosis was tested on releasing and the mammary clamped. Good hooding anastomosis and good distal flow. Pedicle was secured with an interrupted 6-0 Prolene suture. The cross-clamp was removed. A partial occluding clamp placed. Saphenous vein was anastomosed to the aortic root at the punch site with running 6-0 Prolene suture. Partial occluding clamp was removed and graft was deaired. Anastomoses were inspected for hemostasis, which was good. The patient was warmed and weaned from cardiopulmonary bypass. After resumption of sinus rhythm, good hemodynamics, temperature greater than 36.5, bypass was discontinued. Transfusion was given. 24-[place] chest tubes were placed in mediastinum and secured with silk suture. Vancomycin paste was placed on the sternal edges. Decannulation was performed and pursestring suture secured. Hemostasis was ensured within the mediastinum. After adequate hemostasis had been obtained, the sternum was closed with #7 wire. Sternum was treated with platelet rich plasma and wires were then twisted and buried. Peristernal block was performed with bupivacaine. The wounds were then copiously irrigated, treated with platelet poor plasma and closed in multiple layers. Dermabond was applied to skin. Needle, sponge, and instrument counts were all reported as correct at the end of the procedure. Job ID: [id number]
[2019-03-11] MEDS: Ketorolac Tromethamine 30 MG/ML VIAL IVP SCH ×4 (00:15→17:50)
[2019-03-11] MEDS: Insulin Regular 300 UNITS/3 ML VIAL SC PRN (00:20)
[2019-03-11 04:18] LABS: #Lymphocytes 1.2 thou/uL (1.20-3.40); #Monocytes 1.2 thou/uL (0.11-0.59); #Neutrophils 12.2 thou/uL (1.40-6.50); %Lymphocytes 8.2 % (21.0-51.0); %Neutrophils 83.8 % (42.0-75.0); Hemoglobin 12.8 g/dL (14.0-18.0); Mean Corpuscular HGB CONC 33.7 g/dL (32.0-36.0); Mean Corpuscular Hemoglobin 30.2 pg (27.0-31.0); Mean Corpuscular Volume 89.6 fL (78.0-98.0); Mean Platelet Volume 9.6 fL (7.4-10.4); Platelet Count 78 thou/uL (130-400); RBC Distribution Width 12.3 % (11.5-14.5); Red Blood Cell (RBC) Count 4.24 mill/uL (4.70-6.10); White Blood Cell (WBC) Count 14.5 thou/uL (4.8-10.8)
[2019-03-11 04:36] LABS: Anion Gap 10 mmol/L (10-20); BUN (Urea Nitrogen) 14 mg/dL (8.4-25.7); Calc. Creatinine Clearance 81 mL/min (70-130); Carbon Dioxide 22 mmol/L (23-31); Chloride 109 mmol/L (98-107); Estimated GFR-MDRD 83; Glucose 122 mg/dL (83-110); Sodium 137 mmol/L (136-145)
[2019-03-11] MEDS: CEFAZOLIN 2 GM in Premix Bag 1 BAG IVPB SCH ×2 (06:26→13:32)
--- NOTE | 2019-03-11 08:11 | RAD ---
Portable frontal chest radiograph: 03/11/2019 COMPARISON: 03/10/2019 HISTORY: Evaluate chest following open heart surgery FINDINGS: Midline sternotomy wires are present. Right vascular catheter present, distal tip overlying the proximal right atrium. Hazy increased density noted in the medial right base/right infrahilar region. Postsurgical drainage catheter overlies midline mediastinum and mid left lung zone. Linear ra diodensity overlies the proximal aspect of the left mainstem bronchus, etiology uncertain. This may be on the basis of a mediastinal clip. IMPRESSION: Postoperative changes as described above.
[2019-03-11] MEDS: Magnesium 2 GM/50 ML 2 GM in Premix Bag 1 BAG IVPB SCH (08:30)
[2019-03-11] MEDS: Aspirin 325 MG TAB PO SCH (08:31)
--- NOTE | 2019-03-11 08:40 | PRG ---
DATE OF SERVICE: 03/11/2019 SUBJECTIVE: Status post CABG, extubated postop. Per protocol, he is doing well, no pain, no shortness of breath. X-ray looks clear. No effusion. No infiltrates. OBJECTIVE: VITAL SIGNS: Blood pressure 112/59, pulse 73, temperature 98, saturations 100%. CHEST: Decreased breath sounds. No wheezing. CARDIAC: Normal S1 and S2. No gallops. ABDOMEN: No masses. LABORATORY DATA: Unremarkable. ASSESSMENT: Status post coronary artery bypass grafting, stable. PLAN: Pulmonary estevez, we will follow while in the ICU. Continue aggressive PT. Job ID: [id number]
--- NOTE | 2019-03-11 09:31 | PDOC.HOSPP ---
- Subjective Encounter Date: 03/11/19 Encounter Time: 09:29 Subjective: Mr. Carrillo was seen today in follow-up of CABG. He does not have any new complaints. He denies chest pain or dyspnea. - Objective Vital Signs & Weight: Weight Admit Weight 180 lb 1.883 oz Weight 178 lb 12.718 oz Most Recent Monitor Data Heart Rate from ECG 72 NIBP 105/62 NIBP BP-Mean 76 Respiration from ECG 19 SpO2 100 I&O: 03/10/19 03/11/19 03/12/19 06:59 06:59 06:59 Intake Total 3511 1867.2 30 Output Total 925 1938 125 Balance 2586 -70.8 -95 Result Diagrams: 03/11/19 04:10 03/11/19 04:10 Additional Labs: Accuchecks 03/11/19 03/11/19 03/10/19 04:06 00:23 20:15 POC Glucose 119 H 147 H 148 H 03/10/19 03/10/19 03/10/19 16:40 16:08 15:07 POC Glucose 144 H 130 H 127 H 03/10/19 14:03 POC Glucose 121 H Hospitalist ROS - Medication Medications: Active Medications Generic Name Dose Route Start Last Admin Trade Name Freq PRN Reason Stop Dose Admin Aspirin 325 mg 03/11/19 09:00 03/11/19 08:31 Aspirin PO 325 mg DAILY ROSIO Administration Fentanyl 50 mcg 03/10/19 16:15 03/10/19 17:45 Sublimaze SLOW IVP 03/12/19 16:10 50 mcg Q2H PRN Administration Severe Pain (7-10) Cefazolin Sodium/Dextrose 2 gm 50 mls @ 100 mls/hr 03/10/19 22:00 03/11/19 06 :26 / Device IVPB 03/11/19 14:29 50 mls Q8HR ROSIO Administration Magnesium Sulfate 2 gm/ Device 50 mls @ 50 mls/hr 03/11/19 09:00 03/11/19 08: 30 IVPB 03/12/19 09:59 50 mls QAM ROSIO Administration Ketorolac Tromethamine 30 mg 03/10/19 18:00 03/11/19 06:23 Toradol IVP 03/13/19 18:01 30 mg Q6HR ROSIO Administration Ondansetron HCl 4 mg 03/10/19 16:15 03/10/19 20:17 Zofran IVP 4 mg Q6H PRN Administration Nausea/Vomiting Pantoprazole Sodium 40 mg 03/11/19 09:00 03/11/19 08:30 Protonix PO 40 mg BID ROSIO Administration Sodium Chloride 10 ml 03/10/19 21:00 03/11/19 08:30 Flush - Normal Saline IVF 10 ml Q12HR ROSIO Administration - Exam Eye: PERRL Heart: RRR, no gallops (+ mild rub), II/IV Respiratory: CTAB, no wheezes, no rales, no ronchi, normal chest expansion Gastrointestinal: soft, non-tender, non-distended, normal bowel sounds, no palpable masses, no hepatomegaly Extremities: 1+ LE edema Hosp A/P (1) NSTEMI (non-ST elevated myocardial infarction) Code(s): I21.4 - NON-ST ELEVATION (NSTEMI) MYOCARDIAL INFARCTION Status: Acute (2) Chronic diastolic heart failure Code(s): I50.32 - CHRONIC DIASTOLIC (CONGESTIVE) HEART FAILURE Status: Chronic (3) GERD (gastroesophageal reflux disease) Code(s): K21.9 - GASTRO-ESOPHAGEAL REFLUX DISEASE WITHOUT ESOPHAGITIS Status: Chronic - Plan * NSTEMI - patient was found to have 3 vessel CAD- he is s/p CABG * He is hemodynamically stable * Chronic diastolic heart failure- compensated * Blood glucose is stable
--- NOTE | 2019-03-11 14:38 | OP ---
DATE OF PROCEDURE: 03/11/2019 PREOPERATIVE DIAGNOSIS: Need for intra-aortic balloon pump removal. POSTOPERATIVE DIAGNOSIS: Need for intra-aortic balloon pump removal. PROCEDURE PERFORMED: Removal of percutaneously placed intra-aortic balloon pump. ANESTHESIA: None. DESCRIPTION OF PROCEDURE: The right groin was exposed and sutures cut for the balloon pump. Balloon pump was placed on standby and disconnected from arterial waveform monitoring. The balloon pump inflation line was disconnected. Manual pressure was held while the balloon pump was removed. Ante and retrograde bleeding were then allowed. Manual pressure was held for 10 minutes followed by FemStop pressure for hemostasis. The patient tolerated the procedure well. Job ID: [id number] MTDD
--- NOTE | 2019-03-11 16:34 | PDOC.CPN ---
- Subjective Date: 03/11/19 Time: 16:31 Interval history: He is doing very well. He had Surgery yesterday, he is sitting on the chair with minimal complaints. - Review of Systems General: denies: fever/chills, weight/appetite/sleep changes, night sweats, fatigue Respiratory: reports: cough. denies: congestion, shortness of breath, exercise intolerance Cardiovascular: denies: chest pain, palpitation, edema, paroxysmal nocturnal dyspnea, orthopnea Gastrointestinal: denies: nausea, vomiting, diarrhea, constipation, abd pain, GI bleeding Musculoskeletal: reports: pain. denies: tenderness, stiffness, swelling, arthritis/arthralgias Neurological: denies: numbness, syncope, seizure, weakness - Objective Allergies/Adverse Reactions: Allergies Allergy/AdvReac Type Severity Reaction Status Date / Time No Known Allergies Allergy Verified 07/08/16 18:04 Visit Medications: Current Medications Acetaminophen (Tylenol) 650 mg PO Q6H PRN PRN Reason: Headache/Fever/Mild Pain (1-3) Al Hydroxide/Mg Hydroxide (Maalox) 30 ml PO Q4H PRN PRN Reason: Indigestion Albuterol/Ipratropium (Duoneb) 3 ml NEB Q6H PRN PRN Reason: SHORTNESS OF BREATH Aspirin (Aspirin) 325 mg PO DAILY [facility] Last Admin: 03/11/19 08:31 Dose: 325 mg Atorvastatin Calcium (Lipitor) 80 mg PO HS ROSIO Bisacodyl (Dulcolax) 10 mg PO Q12H PRN PRN Reason: Constipation Bisacodyl (Dulcolax) 10 mg VT Q12H PRN PRN Reason: Constipation Fentanyl (Sublimaze) 25 mcg SLOW IVP Q2H PRN PRN Reason: Moderate Pain (4-6) Stop: 03/12/19 16:10 Fentanyl (Sublimaze) 50 mcg SLOW IVP Q2H PRN PRN Reason: Severe Pain (7-10) Stop: 03/12/19 16:10 Last Admin: 03/10/19 17:45 Dose: 50 mcg Guaifenesin/Dextromethorphan (Robitussin Dm) 15 ml PO Q4H PRN PRN Reason: Cough Hydralazine HCl (Apresoline) 10 mg SLOW IVP Q6H PRN PRN Reason: To Maintain SBP< 140mmHG Magnesium Sulfate 2 gm/ Device 50 mls @ 50 mls/hr IVPB QAM [facility] Stop: 03/12/19 09:59 Last Admin: 03/11/19 08:30 Dose: 50 mls Ketorolac Tromethamine (Toradol) 30 mg IVP Q6HR [facility] Stop: 03/13/19 18:01 Last Admin: 03/11/19 11:37 Dose: 30 mg Ondansetron HCl (Zofran) 4 mg IVP Q6H PRN PRN Reason: Nausea/Vomiting Last Admin: 03/10/19 20:17 Dose: 4 mg Pantoprazole Sodium (Protonix) 40 mg PO BID [facility] Last Admin: 03/11/19 08:30 Dose: 40 mg Potassium Chloride (Kcl) 20 meq IVPB PRN PRN PRN Reason: K level </= 4.0 Promethazine HCl (Phenergan) 6.25 mg IM Q4H PRN PRN Reason: Nausea/Vomiting Sodium Chloride (Flush - Normal Saline) 10 ml IVF Q12HR [facility] Last Admin: 03/11/19 08:30 Dose: 10 ml Vital Signs & Weight: Vital Signs Pulse Ox 03/11/19 08:00 100 Admit Weight 180 lb 1.883 oz Weight 178 lb 12.718 oz - Physical Exam General: alert & oriented x3 HEENT: mucus membranes moist Neck: supple neck Cardiac: regular rate and rhythm, no murmur Lungs: normal breath sounds Neuro: grossly intact Abdomen: active bowel sounds Extremities: 1+ LE edema Skin: clear Musculoskeletal: no pain - Labs Result Diagrams: 03/11/19 04:10 03/11/19 04:10 Troponin/CKMB CK-MB (CK-2) 63.3 ng/mL (0-6.6) H* 03/08/19 10:51 Troponin I 8.025 ng/mL (< 0.028) H* 03/08/19 20:58 - Telemetry Sinus rhythms and dysrhythmias: sinus rhythm - Assessment/Plan Assessment/Plan: 1. NSTEMI 2. Severe multivessel AD. 3. S/P CABG 4. Post [facility] stroke PLAN: - Visual field defect unchanged on left eye. He states at times it improves and at times it gets worse. Will have ophthalmology evaluate.
[2019-03-11] MEDS: Atorvastatin Calcium 20 MG TAB PO SCH (20:39)
[2019-03-12] MEDS: Ketorolac Tromethamine 30 MG/ML VIAL IVP SCH ×4 (00:05→18:03)
[2019-03-12 04:05] LABS: #Eosinphils 0.1 thou/uL (0.0-0.7); #Monocytes 1.7 thou/uL (0.11-0.59); #Neutrophils 11.2 thou/uL (1.40-6.50); %Basophils 0.2 % (0.0-1.0); %Eosinophils 0.7 % (0.0-10.0); %Lymphocytes 18.6 % (21.0-51.0); %Monocytes 10.5 % (0.0-10.0); %Neutrophils 70.1 % (42.0-75.0); Hemoglobin 12.2 g/dL (14.0-18.0); Mean Corpuscular Hemoglobin 30.7 pg (27.0-31.0); Mean Corpuscular Volume 90.2 fL (78.0-98.0); Mean Platelet Volume 9.8 fL (7.4-10.4); Platelet Count 120 thou/uL (130-400); RBC Distribution Width 12.5 % (11.5-14.5); Red Blood Cell (RBC) Count 3.99 mill/uL (4.70-6.10); White Blood Cell (WBC) Count 15.9 thou/uL (4.8-10.8)
[2019-03-12 04:20] LABS: Anion Gap 11 mmol/L (10-20); BUN (Urea Nitrogen) 19 mg/dL (8.4-25.7); Calc. Creatinine Clearance 89 mL/min (70-130); Calcium 7.7 mg/dL (7.8-10.44); Carbon Dioxide 22 mmol/L (23-31); Chloride 109 mmol/L (98-107); Estimated GFR-MDRD Greater than 90; Glucose 112 mg/dL (83-110); Potassium 3.7 mmol/L (3.5-5.1); Sodium 138 mmol/L (136-145)
--- NOTE | 2019-03-12 08:14 | RAD ---
XR Chest 1 View Portable History: Post open heart surgery Comparison: Radiograph prior day Findings: Central venous catheter tip sits at the inferior SVC. Heart size is enlarged. Trace effusio ns. Mild scattered atelectasis. No displacement of the multiple midline sternotomy wires. Impression: Expected postoperative findings without complication.
[2019-03-12] MEDS: Aspirin 325 MG TAB PO SCH (08:22)
[2019-03-12] MEDS: Magnesium 2 GM/50 ML 2 GM in Premix Bag 1 BAG IVPB SCH (08:37)
--- NOTE | 2019-03-12 08:50 | PRG ---
DATE OF SERVICE: 03/12/2019 SUBJECTIVE: This morning, he is awake, alert, and responsive. He still has some visual problems in the left eye. Inspector General saw him yesterday, unclear what the issue is, possibly this may be a central artery occlusion temporary hopefully. OBJECTIVE: VITAL SIGNS: Blood pressure 124/64, pulse 74, respiratory rate 18, sats 96% on room air, and afebrile. CHEST: No wheezing or crackles. CARDIAC: Normal S1, S2. No gallops. ABDOMEN: No masses. LABORATORY DATA: Unremarkable. X-ray shows nonspecific bibasilar atelectatic changes. ASSESSMENT: Status post coronary artery bypass grafting. Atelectasis. Otherwise, I agree with transfer to rehab. PT. Supportive care. Eventually, outpatient workup for his visual problems. Job ID: [id number]
--- NOTE | 2019-03-12 09:42 | PDOC.HOSPP ---
- Subjective Encounter Date: 03/12/19 Encounter Time: 09:40 Subjective: Mr. Carrillo was seen today in follow-up of CAD post CABG. He does not have any complaints this morning. - Objective Vital Signs & Weight: Vital Signs (12 hours) Temp 03/12/19 04:00 99.2 F 03/12/19 00:00 99.3 F Weight Admit Weight 180 lb 1.883 oz Weight 167 lb 12.348 oz Most Recent Monitor Data Heart Rate from ECG 70 NIBP 124/65 NIBP BP-Mean 84 Respiration from ECG 17 SpO2 100 I&O: 03/11/19 03/12/19 03/13/19 06:59 06:59 06:59 Intake Total 1867.2 1476 Output Total 1938 1195 0 Balance -70.8 281 0 Result Diagrams: 03/12/19 03:25 03/12/19 03:25 Hospitalist ROS - Medication Medications: Active Medications Generic Name Dose Route Start Last Admin Trade Name Freq PRN Reason Stop Dose Admin Aspirin 325 mg 03/11/19 09:00 03/12/19 08:22 Aspirin PO 325 mg DAILY ROSIO Administration Atorvastatin Calcium 80 mg 03/11/19 08:12 03/11/19 20:39 Lipitor PO 80 mg HS ROSIO Administration Bisacodyl 10 mg 03/10/19 16:15 03/11/19 20:39 Dulcolax PO 10 mg Q12H PRN Administration Constipation Fentanyl 50 mcg 03/10/19 16:15 03/10/19 17:45 Sublimaze SLOW IVP 03/12/19 16:10 50 mcg Q2H PRN Administration Severe Pain (7-10) Magnesium Sulfate 2 gm/ Device 50 mls @ 50 mls/hr 03/11/19 09:00 03/12/19 08: 37 IVPB 03/12/19 09:59 50 mls QAM ROSIO Administration Ketorolac Tromethamine 30 mg 03/10/19 18:00 03/12/19 05:00 Toradol IVP 03/13/19 18:01 30 mg Q6HR ROSIO Administration Ondansetron HCl 4 mg 03/10/19 16:15 03/10/19 20:17 Zofran IVP 4 mg Q6H PRN Administration Nausea/Vomiting Pantoprazole Sodium 40 mg 03/11/19 09:00 03/12/19 08:22 Protonix PO 40 mg BID ROSIO Administration Potassium Chloride 20 meq 03/10/19 16:15 03/12/19 04:55 Kcl IVPB 20 meq PRN PRN Administration K level </= 4.0 Sodium Chloride 10 ml 03/10/19 21:00 03/12/19 08:22 Flush - Normal Saline IVF 10 ml Q12HR ROSIO Administration - Exam Eye: PERRL Heart: RRR, no murmur, no gallops, no rubs, normal peripheral pulses Respiratory: CTAB, no wheezes, no rales, no ronchi, normal chest expansion Gastrointestinal: soft, non-tender, non-distended, normal bowel sounds Extremities: no cyanosis, 1+ LE edema Hosp A/P (1) NSTEMI (non-ST elevated myocardial infarction) Code(s): I21.4 - NON-ST ELEVATION (NSTEMI) MYOCARDIAL INFARCTION Status: Acute (2) Chronic diastolic heart failure Code(s): I50.32 - CHRONIC DIASTOLIC (CONGESTIVE) HEART FAILURE Status: Chronic (3) GERD (gastroesophageal reflux disease) Code(s): K21.9 - GASTRO-ESOPHAGEAL REFLUX DISEASE WITHOUT ESOPHAGITIS Status: Chronic - Plan * NSTEMI - patient was found to have 3 vessel CAD- he is s/p CABG * He is hemodynamically stable * blood pressure is stable * Blood glucose is stable * He is being transferred to [facility] * Continue Cardiac Rehab
--- NOTE | 2019-03-12 16:47 | PDOC.CPN ---
- Subjective Date: 03/12/19 Time: 14:10 Interval history: He is doing well. He had a large BM yesterday after a laxitive was given. - Review of Systems General: denies: fever/chills, weight/appetite/sleep changes, night sweats, fatigue Respiratory: denies: cough, congestion, shortness of breath, exercise intolerance Cardiovascular: denies: chest pain, palpitation, edema, paroxysmal nocturnal dyspnea, orthopnea Gastrointestinal: denies: nausea, vomiting, diarrhea, constipation, abd pain, GI bleeding Musculoskeletal: denies: pain, tenderness, stiffness, swelling, arthritis/ arthralgias Neurological: denies: numbness, syncope, seizure, weakness - Objective Allergies/Adverse Reactions: Allergies Allergy/AdvReac Type Severity Reaction Status Date / Time No Known Allergies Allergy Verified 07/08/16 18:04 Visit Medications: Current Medications Acetaminophen (Tylenol) 650 mg PO Q6H PRN PRN Reason: Headache/Fever/Mild Pain (1-3) Al Hydroxide/Mg Hydroxide (Maalox) 30 ml PO Q4H PRN PRN Reason: Indigestion Albuterol/Ipratropium (Duoneb) 3 ml NEB Q6H PRN PRN Reason: SHORTNESS OF BREATH Aspirin (Aspirin) 325 mg PO DAILY [facility] Last Admin: 03/12/19 08:22 Dose: 325 mg Atorvastatin Calcium (Lipitor) 80 mg PO HS [facility] Last Admin: 03/11/19 20:39 Dose: 80 mg Bisacodyl (Dulcolax) 10 mg PO Q12H PRN PRN Reason: Constipation Last Admin: 03/11/19 20:39 Dose: 10 mg Bisacodyl (Dulcolax) 10 mg [place] Q12H PRN PRN Reason: Constipation Guaifenesin/Dextromethorphan (Robitussin Dm) 15 ml PO Q4H PRN PRN Reason: Cough Hydralazine HCl (Apresoline) 10 mg SLOW IVP Q6H PRN PRN Reason: To Maintain SBP< 140mmHG Ketorolac Tromethamine (Toradol) 30 mg IVP Q6HR [facility] Stop: 03/13/19 18:01 Last Admin: 03/12/19 11:32 Dose: 30 mg Ondansetron HCl (Zofran) 4 mg IVP Q6H PRN PRN Reason: Nausea/Vomiting Last Admin: 03/10/19 20:17 Dose: 4 mg Pantoprazole Sodium (Protonix) 40 mg PO BID [facility] Last Admin: 03/12/19 08:22 Dose: 40 mg Potassium Chloride (Kcl) 20 meq IVPB PRN PRN PRN Reason: K level </= 4.0 Last Admin: 03/12/19 04:55 Dose: 20 meq Promethazine HCl (Phenergan) 6.25 mg IM Q4H PRN PRN Reason: Nausea/Vomiting Sodium Chloride (Flush - Normal Saline) 10 ml IVF Q12HR ROSIO Last Admin: 03/12/19 08:22 Dose: 10 ml Vital Signs & Weight: Vital Signs Temp Pulse Ox 03/12/19 12:00 98.4 F 03/12/19 08:00 98.5 F 98 Admit Weight 180 lb 1.883 oz Weight 167 lb 12.348 oz - Physical Exam General: alert & oriented x3 HEENT: mucus membranes moist Neck: supple neck Cardiac: regular rate and rhythm, no murmur Lungs: normal breath sounds Neuro: grossly intact Abdomen: active bowel sounds Extremities: no edema Skin: clear Musculoskeletal: no pain - Labs Result Diagrams: 03/12/19 03:25 03/12/19 03:25 Troponin/CKMB CK-MB (CK-2) 63.3 ng/mL (0-6.6) H* 03/08/19 10:51 Troponin I 8.025 ng/mL (< 0.028) H* 03/08/19 20:58 - Telemetry Sinus rhythms and dysrhythmias: sinus rhythm - Assessment/Plan Assessment/Plan: 1. NSTEMI 2. Severe multivessel AD. 3. S/P CABG 4. Post procedure stroke PLAN: - Appreciate evaluation by ophthalmology. - ASA/Statin for life. - BB and ACEI if BP allows. Currently borderline low. - Increase PT as tolerated.
[2019-03-12] MEDS ORDERED: Nitroglycerin 0.4 MG TAB (25 Tab Bottle) SL PRN (17:26)
[2019-03-12] MEDS ORDERED: Bisacodyl 10 MG SUPP PR PRN (17:26)
[2019-03-12] MEDS ORDERED: Zolpidem Tartrate 5 MG TAB PO PRN (17:26)
[2019-03-12] MEDS ORDERED: Artificial Tears 18 DROP/0.9 ML EA EYE PRN (17:26)
[2019-03-12] MEDS ORDERED: Bisacodyl 5 MG TAB PO PRN (17:26)
[2019-03-12] MEDS ORDERED: Mag-Al 1200 mg/1200 mg/30 ML UDCUP PO PRN (17:26)
[2019-03-12] MEDS ORDERED: Mineral Oil ENEMA PR PRN (17:26)
[2019-03-12] MEDS ORDERED: diphenhydrAMINE 25 MG CAP PO PRN (17:26)
[2019-03-12] MEDS ORDERED: Guaifenesin DM 100-10/5 ML UDCUP PO PRN (17:26)
[2019-03-12] MEDS: Atorvastatin Calcium 20 MG TAB PO SCH (21:02)
[2019-03-12] MEDS: Carvedilol 3.125 MG TAB PO SCH (21:02)
[2019-03-13] MEDS: Ketorolac Tromethamine 30 MG/ML VIAL IVP SCH ×4 (00:03→17:10)
[2019-03-13] MEDS: Carvedilol 3.125 MG TAB PO SCH ×2 (08:15→20:27)
[2019-03-13] MEDS: Aspirin 325 mg Enteric Coated Tablet PO SCH (08:15)
[2019-03-13] MEDS: Tamsulosin HCl 0.4 MG CAP PO SCH ×2 (08:15→20:28)
[2019-03-13] MEDS ORDERED: Tamsulosin HCl 0.4 MG CAP PO SCH (08:45)
--- NOTE | 2019-03-13 09:00 | PRG ---
DATE OF SERVICE: SUBJECTIVE: This morning, he is awake, alert, and responsive. He is having problem with urination. He has BPH, restarted his Flomax. OBJECTIVE: VITAL SIGNS: Temperature 97, blood pressure 120/65, pulse saturations 96% on room air. CHEST: No wheezing or crackles. CARDIAC: Normal S1, S2. No gallops. ABDOMEN: No masses. ASSESSMENT: Urinary retention secondary to benign prostatic hypertrophy, restarted home medication, left eye visual problems, status post coronary artery bypass grafting. PLAN: Continue PT, supportive care. Disposition as per Cardiology. Job ID: [id number]
--- NOTE | 2019-03-13 09:57 | PDOC.HOSPP ---
- Subjective Encounter Date: 03/13/19 Encounter Time: 09:55 Subjective: Mr. Carrillo was seen today in follow-up of CDA post CABG. He notes lower abdominal pain and distention. He notes difficulty voiding. - Objective Vital Signs & Weight: Vital Signs (12 hours) Temp 03/13/19 07:00 97.8 F 03/13/19 04:00 98.2 F 03/13/19 00:00 98.3 F Weight Admit Weight 180 lb 1.883 oz Weight 166 lb 7.184 oz Most Recent Monitor Data Heart Rate from ECG 58 NIBP 120/65 NIBP BP-Mean 83 Respiration from ECG 14 SpO2 100 I&O: 03/12/19 03/13/19 03/14/19 06:59 06:59 06:59 Intake Total 1476 1020 Output Total 1195 1748 0 Balance 281 -728 0 Result Diagrams: 03/12/19 03:25 03/12/19 03:25 Hospitalist ROS - Medication Medications: Active Medications Generic Name Dose Route Start Last Admin Trade Name Freq PRN Reason Stop Dose Admin Aspirin 325 mg 03/13/19 09:00 03/13/19 08:15 Ecotrin PO 325 mg DAILY ROSIO Administration Atorvastatin Calcium 80 mg 03/11/19 08:12 03/12/19 21:02 Lipitor PO 80 mg HS ROSIO Administration Carvedilol 3.125 mg 03/12/19 21:00 03/13/19 08:15 Coreg PO 3.125 mg BID ROSIO Administration Ketorolac Tromethamine 30 mg 03/10/19 18:00 03/13/19 05:48 Toradol IVP 03/13/19 18:01 30 mg Q6HR ROSIO Administration Ondansetron HCl 4 mg 03/10/19 16:15 03/10/19 20:17 Zofran IVP 4 mg Q6H PRN Administration Nausea/Vomiting Pantoprazole Sodium 40 mg 03/11/19 09:00 03/13/19 08:15 Protonix PO 40 mg BID ROSIO Administration Potassium Chloride 20 meq 03/10/19 16:15 03/12/19 04:55 Kcl IVPB 20 meq PRN PRN Administration K level </= 4.0 Sodium Chloride 10 ml 03/10/19 21:00 03/13/19 08:53 Flush - Normal Saline IVF 10 ml Q12HR ROSIO Administration Tamsulosin HCl 0.4 mg 03/13/19 09:00 03/13/19 08:15 Flomax PO 0.4 mg BID ROSIO Administration Tamsulosin HCl 0.4 mg 03/13/19 08:45 03/13/19 08:53 Flomax PO 03/13/19 10:00 0.4 mg NOW ROSIO Administration - Exam Eye: PERRL Heart: RRR, no murmur, no gallops, no rubs, normal peripheral pulses Respiratory: CTAB, rales Gastrointestinal: soft, non-tender, non-distended, normal bowel sounds, tender to palpation (+ supra -pubic tenderness and fullness) Extremities: no cyanosis, 1+ LE edema Hosp A/P (1) NSTEMI (non-ST elevated myocardial infarction) Code(s): I21.4 - NON-ST ELEVATION (NSTEMI) MYOCARDIAL INFARCTION Status: Acute (2) Chronic diastolic heart failure Code(s): I50.32 - CHRONIC DIASTOLIC (CONGESTIVE) HEART FAILURE Status: Chronic (3) GERD (gastroesophageal reflux disease) Code(s): K21.9 - GASTRO-ESOPHAGEAL REFLUX DISEASE WITHOUT ESOPHAGITIS Status: Chronic (4) BPH with urinary obstruction Code(s): N40.1 - BENIGN PROSTATIC HYPERPLASIA WITH LOWER URINARY TRACT SYMP; N13.8 - OTHER OBSTRUCTIVE AND REFLUX UROPATHY Status: Acute - Plan * NSTEMI - patient was found to have 3 vessel CAD- he is s/p CABG * Urinary retention- he is very distended now, and uncomfortable- will go ahead and place the Sorto now, and leave it in a few days- continue Flomax, and try voiding trial in a few days. * HTN- blood pressure is a bit elevated- this may be related to pain- Carvediolol has been started * Blood glucose is stable * GERD- continue Protonix
--- NOTE | 2019-03-13 12:59 | PDOC.CPN ---
- Subjective Date: 03/13/19 Time: 12:57 Interval history: He had urinary retention. Hayes was placed with relief. Had normal BM this morning. - Review of Systems General: denies: fever/chills, weight/appetite/sleep changes, night sweats, fatigue Respiratory: reports: cough. denies: congestion, shortness of breath, exercise intolerance Cardiovascular: reports: edema. denies: chest pain, palpitation, paroxysmal nocturnal dyspnea, orthopnea Gastrointestinal: denies: nausea, vomiting, diarrhea, constipation, abd pain, GI bleeding Musculoskeletal: reports: swelling. denies: pain, tenderness, stiffness, arthritis/arthralgias Neurological: denies: numbness, syncope, seizure, weakness - Objective Allergies/Adverse Reactions: Allergies Allergy/AdvReac Type Severity Reaction Status Date / Time No Known Allergies Allergy Verified 07/08/16 18:04 Visit Medications: Current Medications Acetaminophen (Tylenol) 650 mg PO Q6H PRN PRN Reason: Headache/Fever/Mild Pain (1-3) Al Hydroxide/Mg Hydroxide (Maalox) 30 ml PO Q4H PRN PRN Reason: Indigestion Albuterol/Ipratropium (Duoneb) 3 ml NEB Q6H PRN PRN Reason: SHORTNESS OF BREATH Artificial Tears (Tears Naturale) 0 drop EA EYE PRN PRN PRN Reason: Dry Eyes Aspirin (Ecotrin) 325 mg PO DAILY [facility] Last Admin: 03/13/19 08:15 Dose: 325 mg Atorvastatin Calcium (Lipitor) 80 mg PO HS [facility] Last Admin: 03/12/19 21:02 Dose: 80 mg Bisacodyl (Dulcolax) 10 mg PO Q12H PRN PRN Reason: Constipation Bisacodyl (Dulcolax) 10 mg [place] Q12H PRN PRN Reason: Constipation Carvedilol (Coreg) 3.125 mg PO BID [facility] Last Admin: 03/13/19 08:15 Dose: 3.125 mg Diphenhydramine HCl (Benadryl) 25 mg PO Q6H PRN PRN Reason: Itching & Insomnia or [place]an [place] Guaifenesin/Dextromethorphan (Robitussin Dm) 15 ml PO Q4H PRN PRN Reason: Cough Hydralazine HCl (Apresoline) 10 mg SLOW IVP Q6H PRN PRN Reason: To Maintain SBP< 140mmHG Ketorolac Tromethamine (Toradol) 30 mg IVP Q6HR [facility] Stop: 03/13/19 18:01 Last Admin: 03/13/19 12:04 Dose: 30 mg Mineral Oil (Fleet Mineral Oil) 133 ml [place] DAILYPRN PRN PRN Reason: Constipation Nitroglycerin (Nitrostat) 0.4 mg SL Q5MIN PRN PRN Reason: Chest Pain Ondansetron HCl (Zofran) 4 mg IVP Q6H PRN PRN Reason: Nausea/Vomiting Last Admin: 03/10/19 20:17 Dose: 4 mg Pantoprazole Sodium (Protonix) 40 mg PO BID [facility] Last Admin: 03/13/19 08:15 Dose: 40 mg Potassium Chloride (Kcl) 20 meq IVPB PRN PRN PRN Reason: K level </= 4.0 Last Admin: 03/12/19 04:55 Dose: 20 meq Promethazine HCl (Phenergan) 6.25 mg IM Q4H PRN PRN Reason: Nausea/Vomiting Sodium Chloride (Flush - Normal Saline) 10 ml IVF Q12HR [facility] Last Admin: 03/13/19 08:53 Dose: 10 ml Tamsulosin HCl (Flomax) 0.4 mg PO BID [facility] Last Admin: 03/13/19 08:15 Dose: 0.4 mg Zolpidem Tartrate (Ambien) 5 mg PO HSPRN PRN PRN Reason: Insomnia Vital Signs & Weight: Vital Signs Temp Pulse BP BP Pulse Ox Pulse Ox 03/13/19 09:10 63 140/80 177/80 H 94 L 100 03/13/19 08:00 97.6 F 03/13/19 07:00 97.8 F 03/13/19 04:00 98.2 F Admit Weight 180 lb 1.883 oz Weight 166 lb 7.184 oz - Physical Exam General: alert & oriented x3, appears well HEENT: mucus membranes moist Neck: supple neck, midline trachea Cardiac: regular rate and rhythm, no murmur Lungs: normal breath sounds Neuro: grossly intact Abdomen: active bowel sounds Extremities: 1+ LE edema Skin: clear Musculoskeletal: no pain - Labs Result Diagrams: 03/12/19 03:25 03/12/19 03:25 Troponin/CKMB CK-MB (CK-2) 63.3 ng/mL (0-6.6) H* 03/08/19 10:51 Troponin I 8.025 ng/mL (< 0.028) H* 03/08/19 20:58 - Telemetry Sinus rhythms and dysrhythmias: sinus rhythm - Assessment/Plan Assessment/Plan: 1. NSTEMI 2. Severe multivessel AD. 3. S/P CABG 4. Post procedure stroke 5. urinary retention/BPH PLAN: - Appreciate evaluation by ophthalmology. - ASA/Statin for life. - Low dose BB and ACEI. - Increase PT as tolerated. - Started tamsulosin per home dose, hopefully will be able to d/c hayes in next day or two.
[2019-03-13] MEDS: Atorvastatin Calcium 20 MG TAB PO SCH (20:27)
[2019-03-14] MEDS ORDERED: Lisinopril 2.5 MG TAB PO SCH (09:00)
[2019-03-14] MEDS: Carvedilol 3.125 MG TAB PO SCH ×2 (09:48→19:25)
[2019-03-14] MEDS: Aspirin 325 mg Enteric Coated Tablet PO SCH (09:48)
[2019-03-14] MEDS: Tamsulosin HCl 0.4 MG CAP PO SCH ×2 (09:49→19:25)
--- NOTE | 2019-03-14 10:16 | PRG ---
DATE OF SERVICE: 03/14/2019 SUBJECTIVE: This morning, he is better. His visual problems still persists, but no shortness of breath. OBJECTIVE: VITAL SIGNS: Temperature 98, pulse 67, respiratory rate 16, blood pressure 120/62. CHEST: No wheezing or crackles. CARDIAC: Normal S1, S2. No gallops. ABDOMEN: No masses. ASSESSMENT: Status post coronary artery bypass grafting emergency, left visual defect probably antibiotic episode. No respiratory distress. PLAN: Pulmonary estevez, at this stage, rehab, supportive care. Pulmonary will follow at a distance. Job ID: [id number]
[2019-03-14] MEDS ORDERED: traMADol HCl 50 MG TAB PO PRN (13:12)
--- NOTE | 2019-03-14 14:51 | PDOC.CPN ---
- Subjective Date: 03/14/19 Time: 14:49 Interval history: He is doing well. he is walking with PT and doing well. Normal BM's. - Review of Systems General: denies: fever/chills, weight/appetite/sleep changes, night sweats, fatigue Respiratory: denies: cough, congestion, shortness of breath, exercise intolerance Cardiovascular: denies: chest pain, palpitation, edema, paroxysmal nocturnal dyspnea, orthopnea Gastrointestinal: denies: nausea, vomiting, diarrhea, constipation, abd pain, GI bleeding Musculoskeletal: reports: pain. denies: tenderness, stiffness, swelling, arthritis/arthralgias Neurological: denies: numbness, syncope, seizure, weakness - Objective Allergies/Adverse Reactions: Allergies Allergy/AdvReac Type Severity Reaction Status Date / Time No Known Allergies Allergy Verified 07/08/16 18:04 Visit Medications: Current Medications Acetaminophen (Tylenol) 650 mg PO Q6H PRN PRN Reason: Headache/Fever/Mild Pain (1-3) Al Hydroxide/Mg Hydroxide (Maalox) 30 ml PO Q4H PRN PRN Reason: Indigestion Albuterol/Ipratropium (Duoneb) 3 ml NEB Q6H PRN PRN Reason: SHORTNESS OF BREATH Artificial Tears (Tears Naturale) 0 drop EA EYE PRN PRN PRN Reason: Dry Eyes Aspirin (Ecotrin) 325 mg PO DAILY [facility] Last Admin: 03/14/19 09:48 Dose: 325 mg Atorvastatin Calcium (Lipitor) 80 mg PO HS [facility] Last Admin: 03/13/19 20:27 Dose: 80 mg Bisacodyl (Dulcolax) 10 mg PO Q12H PRN PRN Reason: Constipation Bisacodyl (Dulcolax) 10 mg GA Q12H PRN PRN Reason: Constipation Carvedilol (Coreg) 3.125 mg PO BID [facility] Last Admin: 03/14/19 09:48 Dose: 3.125 mg Diphenhydramine HCl (Benadryl) 25 mg PO Q6H PRN PRN Reason: Itching & Insomnia or [place] Guaifenesin/Dextromethorphan (Robitussin Dm) 15 ml PO Q4H PRN PRN Reason: Cough Hydralazine HCl (Apresoline) 10 mg SLOW IVP Q6H PRN PRN Reason: To Maintain SBP< 140mmHG Lisinopril (Zestril) 5 mg PO DAILY [facility] Mineral Oil (Fleet Mineral Oil) 133 ml GA DAILYPRN PRN PRN Reason: Constipation Nitroglycerin (Nitrostat) 0.4 mg SL Q5MIN PRN PRN Reason: Chest Pain Ondansetron HCl (Zofran) 4 mg IVP Q6H PRN PRN Reason: Nausea/Vomiting Last Admin: 03/10/19 20:17 Dose: 4 mg Pantoprazole Sodium (Protonix) 40 mg PO BID [facility] Last Admin: 03/14/19 09:49 Dose: 40 mg Potassium Chloride (Kcl) 20 meq IVPB PRN PRN PRN Reason: K level </= 4.0 Last Admin: 03/12/19 04:55 Dose: 20 meq Promethazine HCl (Phenergan) 6.25 mg IM Q4H PRN PRN Reason: Nausea/Vomiting Sodium Chloride (Flush - Normal Saline) 10 ml IVF Q12HR [facility] Last Admin: 03/14/19 09:49 Dose: 10 ml Tamsulosin HCl (Flomax) 0.4 mg PO BID [facility] Last Admin: 03/14/19 09:49 Dose: 0.4 mg Tramadol HCl (Ultram) 50 mg PO Q6H PRN PRN Reason: Pain Zolpidem Tartrate (Ambien) 5 mg PO HSPRN PRN PRN Reason: Insomnia Vital Signs & Weight: Vital Signs Temp Pulse Pulse Pulse Resp BP BP 03/14/19 11:45 97.9 F 66 18 03/14/19 09:24 67 62 130/62 120/62 03/14/19 07:34 98.6 F 67 16 03/14/19 04:00 98.9 F 62 16 BP BP Pulse Ox Pulse Ox Pulse Ox 03/14/19 11:45 139/65 94 L 03/14/19 09:24 98 95 03/14/19 07:34 129/64 95 03/14/19 04:00 102/59 L 93 L Admit Weight 180 lb 1.883 oz Weight 161 lb - Physical Exam General: alert & oriented x3 HEENT: mucus membranes moist Neck: supple neck Cardiac: regular rate and rhythm, no murmur Lungs: clear to auscultation Neuro: grossly intact Abdomen: active bowel sounds Extremities: no edema Skin: clear Musculoskeletal: no pain - Labs Result Diagrams: 03/12/19 03:25 03/12/19 03:25 Troponin/CKMB CK-MB (CK-2) 63.3 ng/mL (0-6.6) H* 03/08/19 10:51 Troponin I 8.025 ng/mL (< 0.028) H* 03/08/19 20:58 - Telemetry Sinus rhythms and dysrhythmias: sinus rhythm - Assessment/Plan Assessment/Plan: 1. NSTEMI 2. Severe multivessel AD. 3. S/P CABG 4. Post procedure stroke 5. urinary retention/BPH PLAN: - Follow up with ophthalmology as scheduled on discharge. - ASA/Statin for life. - BB and ACEI. - Increase PT as tolerated. - Discharge home any time from cardiac perspective.
[2019-03-14 15:13] LABS: #Basophils 0.1 thou/uL (0.0-0.2); #Eosinphils 0.6 thou/uL (0.0-0.7); #Lymphocytes 3.7 thou/uL (1.20-3.40); #Monocytes 1.3 thou/uL (0.11-0.59); #Neutrophils 8.8 thou/uL (1.40-6.50); %Basophils 0.4 % (0.0-1.0); %Eosinophils 4.1 % (0.0-10.0); %Lymphocytes 25.6 % (21.0-51.0); %Monocytes 9.3 % (0.0-10.0); %Neutrophils 60.7 % (42.0-75.0); Hemoglobin 12.5 g/dL (14.0-18.0); Mean Corpuscular HGB CONC 32.7 g/dL (32.0-36.0); Mean Corpuscular Hemoglobin 29.7 pg (27.0-31.0); Mean Corpuscular Volume 90.8 fL (78.0-98.0); Mean Platelet Volume 7.9 fL (7.4-10.4); Platelet Count 217 thou/uL (130-400); RBC Distribution Width 12.4 % (11.5-14.5); Red Blood Cell (RBC) Count 4.21 mill/uL (4.70-6.10); White Blood Cell (WBC) Count 14.5 thou/uL (4.8-10.8)
[2019-03-14 15:25] LABS: Anion Gap 10 mmol/L (10-20); BUN (Urea Nitrogen) 16 mg/dL (8.4-25.7); Calc. Creatinine Clearance 79 mL/min (70-130); Calcium 8.3 mg/dL (7.8-10.44); Carbon Dioxide 26 mmol/L (23-31); Chloride 108 mmol/L (98-107); Estimated GFR-MDRD Greater than 90; Glucose 111 mg/dL (83-110); Potassium 3.4 mmol/L (3.5-5.1); Sodium 141 mmol/L (136-145)
[2019-03-14] MEDS ORDERED: Potassium Chloride 20 MEQ TAB PO SCH (16:00)
--- NOTE | 2019-03-14 17:30 | PDOC.HOSPP ---
- Subjective Encounter Date: 03/14/19 Encounter Time: 17:28 Subjective: Mr. Carrillo was seen today in follow-up of CAD, post CABG. He is feeling fine, he denies chest pain or difficulty breathing. - Objective Vital Signs & Weight: Vital Signs (12 hours) Temp Pulse Pulse Pulse Resp BP BP 03/14/19 15:19 99.3 F 68 16 03/14/19 14:07 68 62 138/68 109/55 L 03/14/19 11:45 97.9 F 66 18 03/14/19 09:24 67 62 130/62 120/62 03/14/19 07:34 98.6 F 67 16 BP BP Pulse Ox Pulse Ox Pulse Ox 03/14/19 15:19 112/60 94 L 03/14/19 14:07 98 95 03/14/19 11:45 139/65 94 L 03/14/19 09:24 98 95 03/14/19 07:34 129/64 95 Weight Admit Weight 180 lb 1.883 oz Weight 161 lb Most Recent Monitor Data Heart Rate from ECG 67 NIBP 134/78 NIBP BP-Mean 96 Respiration from ECG 26 SpO2 100 I&O: 03/13/19 03/14/19 03/15/19 06:59 06:59 06:59 Intake Total 1020 1000 Output Total 1740 2390 Balance -728 -1390 Result Diagrams: 03/14/19 14:59 03/14/19 14:59 Hospitalist ROS - Medication Medications: Active Medications Generic Name Dose Route Start Last Admin Trade Name Freq PRN Reason Stop Dose Admin Aspirin 325 mg 03/13/19 09:00 03/14/19 09:48 Ecotrin PO 325 mg DAILY [facility] Administration Atorvastatin Calcium 80 mg 03/11/19 08:12 03/13/19 20:27 Lipitor PO 80 mg HS [facility] Administration Carvedilol 3.125 mg 03/12/19 21:00 03/14/19 09:48 Coreg PO 3.125 mg BID [facility] Administration Ondansetron HCl 4 mg 03/10/19 16:15 03/10/19 20:17 Zofran IVP 4 mg Q6H PRN Administration Nausea/Vomiting Pantoprazole Sodium 40 mg 03/11/19 09:00 03/14/19 09:49 Protonix PO 40 mg BID [facility] Administration Potassium Chloride 20 meq 03/10/19 16:15 03/12/19 04:55 Kcl IVPB 20 meq PRN PRN Administration K level </= 4.0 Potassium Chloride 40 meq 03/14/19 16:00 03/14/19 16:38 K-Dur PO 03/14/19 18:00 40 meq NOW [facility] Administration Sodium Chloride 10 ml 03/10/19 21:00 03/14/19 09:49 Flush - Normal Saline IVF 10 ml Q12HR [facility] Administration Tamsulosin HCl 0.4 mg 03/13/19 09:00 03/14/19 09:49 Flomax PO 0.4 mg BID [facility] Administration - Exam Eye: PERRL Heart: RRR, no murmur, no gallops, no rubs, normal peripheral pulses Respiratory: CTAB, no wheezes, no rales, no ronchi, normal chest expansion, no tachypnea Gastrointestinal: soft, non-tender, non-distended, normal bowel sounds, no palpable masses Extremities: no cyanosis, no edema Hosp A/P (1) NSTEMI (non-ST elevated myocardial infarction) Code(s): I21.4 - NON-ST ELEVATION (NSTEMI) MYOCARDIAL INFARCTION Status: Acute (2) Chronic diastolic heart failure Code(s): I50.32 - CHRONIC DIASTOLIC (CONGESTIVE) HEART FAILURE Status: Chronic (3) GERD (gastroesophageal reflux disease) Code(s): K21.9 - GASTRO-ESOPHAGEAL REFLUX DISEASE WITHOUT ESOPHAGITIS Status: Chronic (4) BPH with urinary obstruction Code(s): N40.1 - BENIGN PROSTATIC HYPERPLASIA WITH LOWER URINARY TRACT SYMP; N13.8 - OTHER OBSTRUCTIVE AND REFLUX UROPATHY Status: Acute - Plan * NSTEMI - patient was found to have 3 vessel CAD- he is s/p CABG * Urinary retention- continue Flomax, and continue Sorto catheter- will go home with a leg bag * HTN- stable * Blood glucose is stable * GERD- continue Protonix * Plan is for d/c home tomorrow
[2019-03-14] MEDS: Atorvastatin Calcium 20 MG TAB PO SCH (19:25)
--- NOTE | 2019-03-14 23:47 | DIS ---
DATE OF ADMISSION: 03/08/2019 DATE OF DISCHARGE: 03/14/2019 DIAGNOSES: 1. Coronary artery disease. 2. Benign prostatic hypertrophy. 3. Acute myocardial infarction. 4. Hypertension. 5. Dyslipidemia. PROCEDURES: 1. Cardiac catheterization with intraaortic balloon pump placement. 2. Coronary artery bypass grafting on 03/10 x3 left internal mammary artery to LAD. 3. Saphenous vein graft to PDA and PL branches in sequence. 4. Intraaortic balloon pump removal. DESCRIPTION OF HOSPITAL STAY: Mr. Carrillo was admitted with acute myocardial infarction. He has cooled off the balloon pump after being cath at admission. He underwent coronary artery bypass grafting on 03/10. Postoperatively, he did very well. Had his balloon pump removed the following day, has had no rhythm disturbances and is being discharged to home in good condition. He did have difficulties with urination. He has history of BPH, which has previously been followed by and he had been on Flomax 0.4 b.i.d. He was replaced on his Flomax and had his Sorto catheter replaced after not being able to urinate for 12 hours. We have left his Sorto in place and he has an appointment with Dr. Foy next week for further voiding trial and management of his BPH. At the time of discharge, he is ambulatory, tolerating regular diet. His incisions are clean and dry without evidence of infection. DISCHARGE MEDICATIONS: 1. Aspirin 325 mg daily. 2. Coreg 3.125 mg b.i.d. 3. Lisinopril 2.5 mg daily. 4. Lipitor 80 mg at bedtime. 5. Flomax 0.4 mg b.i.d. 6. Protonix 40 mg daily. FOLLOWUP: With me in 2 weeks, Dr. Valenzuela in a month, and Dr. Foy next week. Job ID: [id number]
[2019-03-15 05:11] LABS: Anion Gap 11 mmol/L (10-20); BUN (Urea Nitrogen) 14 mg/dL (8.4-25.7); Calc. Creatinine Clearance 71 mL/min (70-130); Calcium 8.4 mg/dL (7.8-10.44); Carbon Dioxide 25 mmol/L (23-31); Chloride 108 mmol/L (98-107); Estimated GFR-MDRD 80; Glucose 106 mg/dL (83-110); Potassium 3.5 mmol/L (3.5-5.1); Sodium 140 mmol/L (136-145)
[2019-03-15 07:54] VITALS: TEMP 99.3
[2019-03-15] MEDS: Aspirin 325 mg Enteric Coated Tablet PO SCH (07:55)
[2019-03-15] MEDS: Carvedilol 3.125 MG TAB PO SCH (07:56)
[2019-03-15] MEDS: Tamsulosin HCl 0.4 MG CAP PO SCH (07:57)
[2019-03-15] MEDS ORDERED: Lisinopril 2.5 MG TAB PO SCH (09:00)
[2019-03-15 09:21] VITALS: BP 138/65
== END 2019-03-15 11:44 | disposition home or self-care (01) | DRG 234 ==
LOC: ERS 10:30 → CCU 13:46 → 2NO 03-13 20:13
PROVIDERS: ADMIT Internal Medicine; ATTEND Internal Medicine
PROC: 4A023N7 Measurement of Cardiac Sampling and Pressure, Left Heart, Percutaneous Approach (ICD-10-PCS; principal; 2019-03-08)
PROC: B211YZZ Fluoroscopy of Multiple Coronary Arteries using Other Contrast (ICD-10-PCS; 2019-03-08)
PROC: B215YZZ Fluoroscopy of Left Heart using Other Contrast (ICD-10-PCS; 2019-03-08)
PROC: 02100Z9 Bypass Coronary Artery, One Artery from Left Internal Mammary, Open Approach (ICD-10-PCS; 2019-03-10)
PROC: 021109W Bypass Coronary Artery, Two Arteries from Aorta with Autologous Venous Tissue, Open Approach (ICD-10-PCS; 2019-03-10)
PROC: 06BQ4ZZ Excision of Left Saphenous Vein, Percutaneous Endoscopic Approach (ICD-10-PCS; 2019-03-10)
PROC: 5A02110 Assistance with Cardiac Output using Balloon Pump, Intermittent (ICD-10-PCS; 2019-03-10)
PROC: 5A1221Z Performance of Cardiac Output, Continuous (ICD-10-PCS; 2019-03-10)
DX: I21.19 ST elevation (STEMI) myocardial infarction involving other coronary artery of inferior wall (principal); I50.32 Chronic diastolic (congestive) heart failure; J98.11 Atelectasis; I25.10 Atherosclerotic heart disease of native coronary artery without angina pectoris; K21.9 Gastro-esophageal reflux disease without esophagitis; I11.0 Hypertensive heart disease with heart failure; E78.5 Hyperlipidemia, unspecified; N40.1 Benign prostatic hyperplasia with lower urinary tract symptoms; M19.90 Unspecified osteoarthritis, unspecified site; Z90.49 Acquired absence of other specified parts of digestive tract; Z87.442 Personal history of urinary calculi
CPT/HCPCS: 33967; 36415; 36416; 36430; 70450; 71045; 80048; 80053; 80061; 82553; 82805; 84484; 85025; 85610; 85730; 86850; 86900; 86901; 93005; 93010; 93458; 93798; 94760; 96365; 96372; 96375; C1769; C9113; J0171; J0690; J1100; J1644; J1650; J1815; J1885; J2001; J2250; J2270; J2405; J2440; J3010; J3370; J3475; J3480; P9045; Q9967; S0017; S0020; S0028

== ENCOUNTER → 2019-08-05 | Outpatient (CLI) | payer MEDICARE, OTHER ==
[2019-08-05 10:45] LABS: #Basophils 0.1 thou/uL (0.0-0.2); #Eosinphils 0.4 thou/uL (0.0-0.7); #Lymphocytes 4.2 thou/uL (1.20-3.40); #Neutrophils 4.9 thou/uL (1.40-6.50); %Basophils 0.9 % (0.0-1.0); %Eosinophils 3.6 % (0.0-10.0); %Lymphocytes 39.8 % (21.0-51.0); %Monocytes 9.3 % (0.0-10.0); %Neutrophils 46.5 % (42.0-75.0); Hemoglobin 15.3 g/dL (14.0-18.0); Mean Corpuscular HGB CONC 31.3 g/dL (32.0-36.0); Mean Corpuscular Hemoglobin 28.5 pg (27.0-31.0); Mean Corpuscular Volume 90.9 fL (78.0-98.0); Mean Platelet Volume 9.6 fL (7.4-10.4); Platelet Count 151 thou/uL (130-400); RBC Distribution Width 13.7 % (11.5-14.5); Red Blood Cell (RBC) Count 5.36 mill/uL (4.70-6.10); White Blood Cell (WBC) Count 10.6 thou/uL (4.8-10.8)
[2019-08-05 11:12] LABS: ALT (SGPT) 40 U/L (8-55); AST (SGOT) 26 U/L (5-34); Albumin 4.3 g/dL (3.4-4.8); Alkaline Phosphatase 142 U/L (40-110); Anion Gap 9 mmol/L (10-20); BUN (Urea Nitrogen) 15 mg/dL (8.4-25.7); Calc. Creatinine Clearance 0 mL/min (70-130); Calcium 9.5 mg/dL (7.8-10.44); Carbon Dioxide 30 mmol/L (23-31); Chloride 106 mmol/L (98-107); Estimated GFR-MDRD 89; Globulin 2.5 g/dL (2.4-3.5); Glucose 99 mg/dL (83-110); Potassium 4.2 mmol/L (3.5-5.1); Protein, Total 6.8 g/dL (5.8-8.1); Sodium 141 mmol/L (136-145)
[2019-08-05 18:04] LABS: SARS-CoV-2 MS2 Positive; SARS-CoV-2 N Gene Negative; SARS-CoV-2 S Gene Negative; SARS-CoV-2 orf1ab Negative
--- NOTE | 2019-08-05 20:21 | EKG ---
Test Reason : Blood Pressure : / mmHG Vent. Rate : 063 BPM Atrial Rate : 063 BPM P-R Int : 126 ms QRS Dur : 090 ms QT Int : 410 ms P-R-T Axes : 065 084 043 degrees QTc Int : 419 ms Normal sinus rhythm Normal ECG When compared with ECG of 10-MAR-2019 16:34, Right bundle branch block is no longer Present Minimal criteria for Inferior infarct are no longer Present Confirmed by ARMOND CHAU, SNewton ([id number]) on 08/05/2019 8:21:42 PM Referred By: HERMELINDO Confirmed By:DR. Mavis LEAHY MD
== END ==
LOC: LABBT 12:51
PROVIDERS: ATTEND Surgery
DX: Z01.818 Encounter for other preprocedural examination (principal); Z11.59 Encounter for screening for other viral diseases; K40.90 Unilateral inguinal hernia, without obstruction or gangrene, not specified as recurrent
CPT/HCPCS: 80053; 85025; 93005; U0003; 87635; 93010

== ENCOUNTER 2019-08-07 08:24 | Day surgery (SDC) | payer MEDICARE ==
[2019-08-05 09:28] VITALS: BMI 24.3
[2019-08-07] MEDS ORDERED: Fentanyl 100 MCG/2 ML VIAL ONE (10:15)
[2019-08-07] MEDS ORDERED: Bupivacaine 0.25% HCL 30 ML VIAL ONE (11:15)
[2019-08-07] MEDS ORDERED: Lidocaine 1% w/Epinephrine 1:100K 20 ML VIAL ONE (11:15)
[2019-08-07] MEDS ORDERED: PROPOFOL 200 MG/20 ML VIAL ONE (12:17)
[2019-08-07] MEDS ORDERED: Ketorolac Tromethamine 30 MG/ML VIAL ONE (12:17)
[2019-08-07] MEDS ORDERED: Lidocaine 1% PF 5 ML VIAL ONE (12:17)
[2019-08-07] MEDS ORDERED: Dexamethasone 20 MG/5 ML VIAL ONE (12:17)
[2019-08-07] MEDS ORDERED: Rocuronium Bromide 10 MG/ML (10ML VIAL) ONE (12:17)
[2019-08-07] MEDS ORDERED: Ondansetron PF 4 MG/2 ML Vial ONE (12:17)
--- NOTE | 2019-08-08 08:07 | OP ---
DATE OF PROCEDURE: 08/07/2019 PREOPERATIVE DIAGNOSIS: Left inguinal hernia. PROCEDURE PERFORMED: Left inguinal hernia repair with mesh. INDICATIONS: This is a 78-year-old male with a painful groin bulge on the left side, found to have a hernia. FINDINGS: Direct left inguinal hernia. DESCRIPTION OF PROCEDURE: After informed consent was obtained, the patient was taken to the operating room, given general mask anesthesia, placed in supine position. Groin was prepped and draped in usual fashion. Local anesthesia was infiltrated subcutaneously and deep. A transverse inguinal incision was performed. Subcu divided sharply. The fascia of external oblique was incised in direction of its fibers through the external ring. Spermatic cord was isolated with a [place] drain. He had a moderate-sized direct inguinal hernia, no indirect component. The hernia was circumscribed and reduced. Reduction maintained with a PHS hernia system. Posterior layer placed in the preperitoneal space, anterior laid out, sutured to the pubic tubercle with a 2-0 Prolene suture. Tucked under the external oblique fascia laterally. A notch was cut out for the spermatic cord. Hemostasis was assured. Cord placed anatomic. The external oblique fascia was closed with running 3-0 Vicryl. Cam was closed with interrupted 3-0 Vicryl and the skin closed with running subcuticular 4-0 Rapide. Steri-Strips applied. Sterile bandage applied. The patient tolerated the procedure well, transferred to Recovery in good condition. Sponge and needle count verified correct x2. Job ID: [id number]
== END 2019-08-07 14:40 | disposition home or self-care (01) ==
LOC: SDC 08:24
PROVIDERS: ATTEND Surgery
PROC: 0YQ60ZZ Repair Left Inguinal Region, Open Approach (ICD-10-PCS; principal; 2019-08-07)
DX: K40.90 Unilateral inguinal hernia, without obstruction or gangrene, not specified as recurrent (principal); I10 Essential (primary) hypertension; I25.10 Atherosclerotic heart disease of native coronary artery without angina pectoris; Z79.82 Long term (current) use of aspirin; Z79.899 Other long term (current) drug therapy; Z95.1 Presence of aortocoronary bypass graft
CPT/HCPCS: 49505; C1781; J0690; J1100; J1885; J2001; J2405; J2704; J3010; S0020

== ENCOUNTER 2021-02-23 11:23 | Outpatient (CLI) | payer MEDICARE | END 2021-02-23 11:24 | disposition home or self-care (01) | LOC: CT 11:23 | PROVIDERS: ATTEND Urology | DX: N20.2 Calculus of kidney with calculus of ureter (principal); N21.0 Calculus in bladder; N40.0 Benign prostatic hyperplasia without lower urinary tract symptoms; I70.90 Unspecified atherosclerosis; K57.30 Diverticulosis of large intestine without perforation or abscess without bleeding; Z90.49 Acquired absence of other specified parts of digestive tract; Z96.0 Presence of urogenital implants | CPT/HCPCS: 74176 ==

== ENCOUNTER 2021-03-03 12:02 | Outpatient (CLI) | payer MEDICARE ==
[2021-03-03 15:02] LABS: Bilirubin Neg (Negative); Blood, Urine 50 (Negative); Clarity Cloudy (Clear); Glucose, Urine (Dipstick) Normal (Negative); Ketone, Urine Negative (Negative); Leukocyte 500 (Negative); Nitrite Positive (Negative); Protein, Urine (Dipstick) 30 mg/dl (Neg-Trace); Specific Gravity, Urine 1.015 (1.002-1.036); Urobilinogen Normal mg/dL (Less than 2)
[2021-03-03 15:05] LABS: Hemoglobin 15.1 g/dL (13.5-17.5); Mean Corpuscular HGB CONC 32.5 g/dL (32.0-36.0); Mean Corpuscular Hemoglobin 29.3 pg (27.0-33.0); Mean Corpuscular Volume 90.1 fl (81.2-95.1); Mean Platelet Volume 12.3 fl (7.4-10.4); Platelet Count 162 10x3/uL (150-450); RBC Distribution Width 14.3 % (11.5-14.5); Red Blood Cell (RBC) Count 5.16 10x6/uL (4.32-5.72); White Blood Cell (WBC) Count 10.2 10x3/uL (3.5-10.5)
[2021-03-03 15:07] LABS: Bacteria/HPF 1+ HPF (None Seen); Squamous Epithelial 0-3 HPF (0-3); Urine Culture Reflex Yes Yes; WBC/HPF Greater Than 50 HPF (0-3)
[2021-03-03 15:32] LABS: Anion Gap 10 mmol/L (10-20); BUN (Urea Nitrogen) 14 mg/dL (8.4-25.7); Calc. Creatinine Clearance 0 mL/min (70-130); Calcium 9.3 mg/dL (7.8-10.44); Carbon Dioxide 28 mmol/L (23-31); Chloride 106 mmol/L (98-107); Glucose 91 mg/dL (83-110); Potassium 4.3 mmol/L (3.5-5.1); Sodium 140 mmol/L (136-145)
[2021-03-03 22:21] LABS: SARS-CoV-2 PCR by NAA Not Detected (NotDetected)
== END 2021-03-03 12:03 | disposition home or self-care (01) ==
LOC: LABBT 12:02
PROVIDERS: ATTEND Urology
DX: Z01.818 Encounter for other preprocedural examination (principal); Z20.822 Contact with and (suspected) exposure to COVID-19
CPT/HCPCS: 80048; 81001; 85027; 87086; U0003; U0005; 93005; 93010

== ENCOUNTER 2021-03-08 06:27 | Day surgery (SDC) | payer MEDICARE ==
[2021-03-07 10:26] VITALS: BMI 24.3
[2021-03-08] MEDS ORDERED: Fentanyl 100 MCG/2 ML VIAL ONE (06:54)
[2021-03-08] MEDS ORDERED: Levofloxacin 500 mg/D5W 100 ml Premix Bag ONE (07:04)
[2021-03-08] MEDS ORDERED: SUGAMMADEX SODIUM 200 MG/2 ML VIAL ONE (07:04)
[2021-03-08] MEDS ORDERED: Ondansetron PF 4 MG/2 ML Vial ONE (07:41)
[2021-03-08] MEDS ORDERED: ePHEDrine 50 MG/ML VIAL ONE (07:41)
[2021-03-08] MEDS ORDERED: Phenylephrine 10 MG/ML VIAL ONE (07:41)
[2021-03-08] MEDS ORDERED: Dexamethasone 20 MG/5 ML VIAL ONE (07:41)
[2021-03-08] MEDS ORDERED: Lidocaine 1% PF 5 ML VIAL ONE (07:41)
[2021-03-08] MEDS ORDERED: PROPOFOL 200 MG/20 ML VIAL ONE (07:41)
[2021-03-08] MEDS ORDERED: Iothalamate Meglumine 60% 50 ML VIAL FS ONE (07:42)
[2021-03-08] MEDS ORDERED: Ketorolac Tromethamine 30 MG/ML VIAL ONE (09:44)
[2021-03-08] MEDS ORDERED: Phenazopyridine HCl 100 MG TAB ONE (09:45)
[2021-03-08] MEDS ORDERED: Oxybutynin 5 MG TAB ONE (09:46)
== END 2021-03-08 11:25 | disposition home or self-care (01) ==
LOC: SDC 06:27
PROVIDERS: ATTEND Urology
PROC: 0TCB8ZZ Extirpation of Matter from Bladder, Via Natural or Artificial Opening Endoscopic (ICD-10-PCS; principal; 2021-03-08)
PROC: 0VT08ZZ Resection of Prostate, Via Natural or Artificial Opening Endoscopic (ICD-10-PCS; 2021-03-08)
DX: N40.1 Benign prostatic hyperplasia with lower urinary tract symptoms (principal); N21.0 Calculus in bladder; R39.15 Urgency of urination; R39.12 Poor urinary stream; R35.0 Frequency of micturition; N32.89 Other specified disorders of bladder; N32.3 Diverticulum of bladder; I10 Essential (primary) hypertension; I25.10 Atherosclerotic heart disease of native coronary artery without angina pectoris; Z86.718 Personal history of other venous thrombosis and embolism; Z79.01 Long term (current) use of anticoagulants; Z79.899 Other long term (current) drug therapy; Z95.1 Presence of aortocoronary bypass graft
CPT/HCPCS: 52318; 52601; 74420; 82365; Q9961; 88300; 88305; J1100; J1885; J1956; J2370; J2405; J2704; J3010; J3490

== ENCOUNTER 2021-03-28 12:28 | Outpatient (CLI) | payer MEDICARE | END 2021-03-28 12:29 | disposition home or self-care (01) | LOC: ULT 12:28 | PROVIDERS: ATTEND Urology | DX: N21.0 Calculus in bladder (principal); N28.89 Other specified disorders of kidney and ureter; N40.1 Benign prostatic hyperplasia with lower urinary tract symptoms; N13.8 Other obstructive and reflux uropathy | CPT/HCPCS: 76770 ==

== ENCOUNTER 2021-05-17 09:05 | Outpatient (CLI) | payer MEDICARE ==
[2021-05-17] MEDS ORDERED: Iopamidol-370 76% 500 ML 1 ML ONE (12:17)
== END 2021-05-17 09:06 | disposition home or self-care (01) ==
LOC: CT 09:05
PROVIDERS: ATTEND Urology
DX: N20.2 Calculus of kidney with calculus of ureter (principal)
CPT/HCPCS: 74177; 82565; Q9967